=== PATIENT | male | born 1945 | race African-American/Black ===

== ENCOUNTER 2016-02-05 18:19 | Inpatient (IN) | payer OTHER ==
[2016-02-05 19:07] VITALS: BMI 18.8
--- NOTE | 2016-02-05 19:59 | HP ---
Admission [facility] Chief Complaint: i want to go to rehab Allergies/Adverse Reactions: Allergies Allergy/AdvReac Type Severity Reaction Status Date / Time No Known Allergies Allergy Verified 02/05/16 20:09 History of Present Illness: 70 years old male with long history of alcohol nicotine dependence, has bph, hyperthyroid chronic back pain 12/2015 lost beloved friend, tearful, is admitted to rehab Exam Limitations: No Limitations - Ebola screening Have you traveled outside of the country in the last 21 days: No Have you had contact with anyone from an Ebola affected area: No Have you been sick,other than usual withdrawal symptoms: No Do you have a fever: No - Review of Systems Constitutional: Chills, Loss of Appetite, Changes in sleep, Unintentional Wgt. Loss EENT: reports: Dental Problems Respiratory: reports: No Symptoms reported Cardiac: reports: No Symptoms Reported GI: reports: No Symptoms Reported : reports: See HPI Musculoskeletal: reports: Back Pain Integumentary: reports: Change in Color (left foot) Neuro: reports: No Symptoms reported Endocrine: reports: Unexplained Weight Loss Hematology: reports: No Symptoms Reported Psychiatric: reports: Judgement Intact, Orientated x3, Depressed (recent lost beloved one) Other Systems: Reviewed and Negative Patient History - Patient Medical History Hx Anemia: No Hx Asthma: No Hx Chronic Obstructive Pulmonary Disease (COPD): No Hx Cancer: No Hx Cardiac Disorders: No Hx Congestive Heart Failure: No Hx Hypertension: No Hx Hypercholesterolemia: No Hx Pacemaker: No HX Cerebrovascular Accident: No Hx Seizures: No Hx Dementia: No Hx Diabetes: No Hx Gastrointestinal Disorders: No Hx Liver Disease: No Hx Genitourinary Disorders: No Hx Sexually Transmitted Disorders: No Hx Renal Disease (ESRD): No Hx Thyroid Disease: No Hx Human Immunodeficiency Virus (HIV): No Hx Hepatitis C: No Hx Depression: Yes (recent lost significant other) Hx Suicide Attempt: No Hx Bipolar Disorder: No Hx Schizophrenia: No - Patient Surgical History Past Surgical History: No - PPD History Previous Implant?: Yes Documented Results: Negative w/o proof Implanted On Prior [facility] Admission?: No PPD to be Administered?: Yes - Smoking Cessation Smoking history: Current every day smoker Have you smoked in the past 12 months: Yes Aproximately how many cigarettes per day: 5 Cigars Per Day: 0 Hx Chewing Tobacco Use: No Initiated information on smoking cessation: Yes 'Breaking Loose' booklet given: 02/05/16 - Substance & Tx. History Hx Alcohol Use: Yes Hx Substance Use: No Substance Use Type: Alcohol Hx Substance Use Treatment: Yes - Substances Abused Alcohol Route: Oral Frequency: Daily Amount used: susanna valenzuela Age of first use: 19 Date of Last Use: 02/04/16 Family Disease History - Family Disease History Family Disease History: Diabetes: Mother Admission Physical Exam [facility] - Vital Signs Vital Signs: Vital Signs - 24 hr 02/05/16 19:03 Temperature 97.9 F Pulse Rate 99 H Respiratory 20 Rate Blood Pressure 139/91 - Physical General Appearance: Yes: No Apparent Distress, Appropriately Dressed, Thin HEENTM: Yes: Hearing grossly Normal, Normal ENT Inspection, Normocephalic, Normal Voice Respiratory: Yes: Chest Non-Tender, Lungs Clear, Normal Breath Sounds, No Respiratory Distress, No Accessory Muscle Use Neck: Yes: Supple, Trachea in good position Breast: Yes: Breasts Symetrical Cardiology: Yes: Regular Rhythm, S1, S2, Tachycardia (rule out hyperthyroid) Abdominal: Yes: Non Tender, Soft Genitourinary: Yes: Within Normal Limits Back: Yes: Normal Inspection Musculoskeletal: Yes: full range of Motion, Gait Steady, Back pain (lidocaine) Extremities: Yes: Normal Inspection, Normal Range of Motion, Non-Tender Neurological: Yes: Fully Oriented, Alert, Motor Strength 5/5, Normal Response, Depressed Affect (significant pasted away 12/2015) Integumentary: Yes: Dry, Warm Lymphatic: Yes: Within Normal Limits - Diagnostic (1) Alcohol dependence with uncomplicated withdrawal Current Visit: Yes Status: Acute (2) BPH (benign prostatic hyperplasia) Current Visit: Yes Status: Acute Qualifiers: Prostatic enlargement morphology: non-nodular Lower urinary tract symptom presence: symptoms absent Qualified Code(s): N40.0 - Enlarged prostate without lower urinary tract symptoms (3) Hyperthyroidism Current Visit: Yes Status: Ruled-out Comment: tsh pending (4) Acute depression Current Visit: Yes Status: Acute Comment: significant other past away (5) Weight loss Current Visit: Yes Status: Acute (6) Arthritis Current Visit: Yes Status: Acute Comment: lidocaine patch Cleared for Admission [facility] - Detox or Rehab [facility] Level of Care: Observation Bed Claeared for Rehab Admission: Yes [facility] Breath Alcohol Content Breath Alcohol Content: 0 Urine Drug Screen - Results Drug Screen Negative: Yes
[2016-02-05] MEDS ORDERED: MAG HYDROX/AL HYDROX/SIMETH 30 ML UNIT-DOSE CUP PO PRN (20:04)
[2016-02-05] MEDS ORDERED: MAGNESIUM CITRATE 300 ML BOTTLE PO PRN (20:04)
[2016-02-05] MEDS ORDERED: MENTHOL/PHENOL 1 EACH UD MM PRN (20:04)
[2016-02-05] MEDS ORDERED: guaiFENesin/D-METHORPHAN HB 10 ML UNIT-DOSE CUPS PO PRN (20:04)
[2016-02-05] MEDS ORDERED: LOPERAMIDE HCL 2 MG CAPSULE PO PRN (20:04)
[2016-02-05] MEDS ORDERED: MAGNESIUM HYDROX 2400MG/30ML ORAL SUSPENSION 30 ML CUP PO PRN (20:04)
[2016-02-05] MEDS ORDERED: P-EPHED 60MG/TRIPROLIDI 2.5MG TABLET PO PRN (20:04)
[2016-02-05] MEDS ORDERED: hydrOXYzine PAMOATE 50 MG CAPSULE (FP) PO PRN (20:09)
[2016-02-05] MEDS ORDERED: NICOTINE POLACRILEX 2 MG GUM BC PRN (20:09)
[2016-02-05] MEDS ORDERED: cloNIDine HCL 0.1 MG TABLET PO PRN (20:13)
[2016-02-05] MEDS ORDERED: BACITRACIN 0.9 GM PACKET TP ONE (20:15)
[2016-02-05] MEDS: MINERAL OIL/PETROLAT/WATER TOPICAL CREAM 113 GM JAR TP SCH (23:03)
[2016-02-05] MEDS: THIAMINE HCL 100 MG TABLET (FP) PO SCH (23:03)
[2016-02-06] MEDS: TAMSULOSIN HCL 0.4 MG CAP.ER.24H (FP) PO SCH (09:29)
[2016-02-06] MEDS: NICOTINE 14 MG/24 HOURS TOPICAL PATCH TD SCH (09:43)
[2016-02-06] MEDS: PRENATAL VITAMINS W/ FOLIC ACID TABLET (FP) PO SCH (09:43)
[2016-02-06] MEDS: LIDOCAINE 5% TOPICAL PATCH TP SCH (09:43)
[2016-02-06] MEDS: IBUPROFEN 400 MG TABLET (FP) PO PRN (09:44)
[2016-02-06 10:34] LABS: MCH 28.2 pg (25.7-33.7); MCHC 32.8 g/dl (32.0-35.9); MEAN PLT VOLUME 7.7 fl (7.5-11.1); PLATELET COUNT 286 K/MM3 (134-434); RDW 13.9 % (11.9-15.9)
[2016-02-06 11:06] LABS: ALBUMIN 3.4 g/dl (3.4-5.0); ALK PHOS 53 U/L (45-117); ANION GAP 8 (8-16); BILIRUBIN,TOTAL 0.3 mg/dL (0.2-1.0); CO2 27 mmol/L (21-32); CREATININE 1.1 mg/dL (0.7-1.3); GLUCOSE,RANDOM 77 mg/dL (74-106); TOT PROT 7.1 g/dl (6.4-8.2)
[2016-02-06 11:09] LABS: SGOT/AST 24 U/L (15-37); SGPT/ALT 25 U/L (12-78)
[2016-02-06 11:26] LABS: THYROID STIMULATING HORMONE 1.24 uIU/ml (0.358-3.74)
--- NOTE | 2016-02-06 19:05 | HP ---
Psychiatrist Admission - Data Date of interview: 02/06/16 Admission source: [facility] Identifying data: First admission to [address] for this 70 y/o [place]-born male seeking rehabilitation treatment after completion of detox ([facility]) for alcohol and cocaine (crack) dependence.Patient is ,a father of six,homeless,unemployed and supported on SSI/SSD benefits. Medical History: Significant for low back pain,hyperthyroidism and benign prostatic hyperplasia. Psychiatric History: Patient denies. Physical/Sexual Abuse/Trauma History: Patient denies history of sexual abuse.Stressors:recent of a friend,homelessness and lack of family support. Additional Comment: - Smoking Cessation. Smoking history: Current every day smoker. Have you smoked in the past 12 months: Yes. Aproximately how many cigarettes per day: 5. Cigars Per Day: 0. Hx Chewing Tobacco Use: No. Initiated information on smoking cessation: Yes. 'Breaking Loose' booklet given : 02/05/16. - Substance & Tx. History. Hx Alcohol Use: Yes. Hx Substance Use : No. Substance Use Type: Alcohol. Hx Substance Use Treatment: Yes. - Substances Abused. Alcohol. Route: Oral. Frequency: Daily. Amount used: pint volka. Age of first use: 19. Date of Last Use: 02/04/16. Confirmed by patient. Vital Signs: Vital Signs - 24 hr 02/05/16 02/05/16 02/06/16 19:03 20:55 03:25 Temperature 97.9 F 98.1 F Pulse Rate 99 H 89 Respiratory 20 18 18 Rate Blood Pressure 139/91 134/83 02/06/16 06:56 Temperature 97.2 F L Pulse Rate 79 Respiratory 18 Rate Blood Pressure 134/85 Allergies/Adverse Reactions: Allergies Allergy/AdvReac Type Severity Reaction Status Date / Time No Known Allergies Allergy Verified 02/05/16 23:37 - Substance Abuse/Tx History Hx Alcohol Use: Yes Hx Substance Use: Yes (crack-cocaine,nicotine and alcohol) Substance Use Type: Alcohol, Cocaine Hx Substance Use Treatment: Yes - Admission Criteria Previous failed treatment: Yes Poor recovery environment: Yes Comorbidities: Yes Mental Status Exam - Mental Status Exam Alert and Oriented to: Time, Place, Person Cognitive Function: Good Patient Appearance: Well Groomed Mood: Sad (saddened by the of his female friend and roommate), Hopeful Affect: Appropriate, Normal Range Patient Behavior: Fatigued, Appropriate, Cooperative Speech Pattern: Clear, Appropriate Voice Loudness: Normal Thought Process: Intact, Goal Oriented Thought Disorder: Not Present Hallucinations: Denies Suicidal Ideation: Denies Homicidal Ideation: Denies Insight/Judgement: Fair Sleep: Well Appetite: Good Muscle strength/Tone: Normal Gait/Station: Normal Psychiatric Findings - Problem List ([place] 1, 2,3) (1) Alcohol dependence Current Visit: Yes Status: Acute (2) Cocaine dependence Current Visit: Yes Status: Acute (3) Bereavement Current Visit: Yes Status: Acute (4) BPH (benign prostatic hyperplasia) Current Visit: Yes Status: Chronic Qualifiers: Prostatic enlargement morphology: non-nodular Lower urinary tract symptom presence: symptoms absent Qualified Code(s): N40.0 - Enlarged prostate without lower urinary tract symptoms (5) Arthritis Current Visit: Yes Status: Chronic Comment: lidocaine patch (6) Hyperthyroidism Current Visit: Yes Status: Ruled-out Comment: tsh pending (7) Weight loss Current Visit: Yes Status: Chronic - Initial Treatment Plan Initial Treatment Plan: Psychoeducation.Rehabilitation.No indication for antidepressant medications (normal reaction to a loss).Empathy and support.Observation.
[2016-02-06] MEDS: THIAMINE HCL 100 MG TABLET (FP) PO SCH (21:42)
[2016-02-06] MEDS: diphenhydrAMINE HCL 50 MG CAPSULE PO PRN (21:43)
[2016-02-06] MEDS: MINERAL OIL/PETROLAT/WATER TOPICAL CREAM 113 GM JAR TP SCH (21:44)
[2016-02-07] MEDS: IBUPROFEN 400 MG TABLET (FP) PO PRN (06:42)
[2016-02-07] MEDS: TAMSULOSIN HCL 0.4 MG CAP.ER.24H (FP) PO SCH (09:20)
[2016-02-07] MEDS: NICOTINE 14 MG/24 HOURS TOPICAL PATCH TD SCH (09:20)
[2016-02-07] MEDS: PRENATAL VITAMINS W/ FOLIC ACID TABLET (FP) PO SCH (09:20)
[2016-02-07] MEDS: LIDOCAINE 5% TOPICAL PATCH TP SCH (09:21)
[2016-02-07] MEDS: THIAMINE HCL 100 MG TABLET (FP) PO SCH (21:46)
[2016-02-07] MEDS: MINERAL OIL/PETROLAT/WATER TOPICAL CREAM 113 GM JAR TP SCH (21:46)
[2016-02-07] MEDS: diphenhydrAMINE HCL 50 MG CAPSULE PO PRN (21:46)
[2016-02-08] MEDS: LIDOCAINE 5% TOPICAL PATCH TP SCH (09:29)
[2016-02-08] MEDS: PRENATAL VITAMINS W/ FOLIC ACID TABLET (FP) PO SCH (09:29)
[2016-02-08] MEDS: TAMSULOSIN HCL 0.4 MG CAP.ER.24H (FP) PO SCH (09:29)
[2016-02-08] MEDS: NICOTINE 14 MG/24 HOURS TOPICAL PATCH TD SCH (09:30)
[2016-02-08] MEDS: IBUPROFEN 400 MG TABLET (FP) PO PRN (09:31)
[2016-02-08 15:37] LABS: URINE APPEARANCE CLEAR; URINE BILIRUBIN NEGATIVE (NEGATIVE); URINE BLOOD NEGATIVE (NEGATIVE); URINE COLOR YELLOW; URINE GLUCOSE (UA) NEGATIVE (NEGATIVE); URINE KETONE NEGATIVE (NEGATIVE); URINE LEUK ESTERASE NEGATIVE (NEGATIVE); URINE NITRITE NEGATIVE (NEGATIVE); URINE PROTEIN NEGATIVE (NEGATIVE); URINE UROBILINOGEN NEGATIVE E.U./dl (0.2-1.0)
[2016-02-08] MEDS: MINERAL OIL/PETROLAT/WATER TOPICAL CREAM 113 GM JAR TP SCH (21:17)
[2016-02-08] MEDS: THIAMINE HCL 100 MG TABLET (FP) PO SCH (21:18)
[2016-02-08] MEDS: diphenhydrAMINE HCL 50 MG CAPSULE PO PRN (21:18)
[2016-02-09] MEDS: PRENATAL VITAMINS W/ FOLIC ACID TABLET (FP) PO SCH (09:29)
[2016-02-09] MEDS: TAMSULOSIN HCL 0.4 MG CAP.ER.24H (FP) PO SCH (09:30)
[2016-02-09] MEDS: NICOTINE 14 MG/24 HOURS TOPICAL PATCH TD SCH (09:31)
[2016-02-09] MEDS: LIDOCAINE 5% TOPICAL PATCH TP SCH (09:31)
[2016-02-09] MEDS: diphenhydrAMINE HCL 50 MG CAPSULE PO PRN (21:50)
[2016-02-09] MEDS: MINERAL OIL/PETROLAT/WATER TOPICAL CREAM 113 GM JAR TP SCH (21:50)
[2016-02-09] MEDS: THIAMINE HCL 100 MG TABLET (FP) PO SCH (21:50)
[2016-02-09] MEDS: IBUPROFEN 400 MG TABLET (FP) PO PRN (21:52)
[2016-02-10] MEDS: TAMSULOSIN HCL 0.4 MG CAP.ER.24H (FP) PO SCH (08:35)
[2016-02-10] MEDS: NICOTINE 14 MG/24 HOURS TOPICAL PATCH TD SCH (09:35)
[2016-02-10] MEDS: PRENATAL VITAMINS W/ FOLIC ACID TABLET (FP) PO SCH (09:41)
[2016-02-10] MEDS: IBUPROFEN 400 MG TABLET (FP) PO PRN (09:42)
[2016-02-10] MEDS: LIDOCAINE 5% TOPICAL PATCH TP SCH (09:43)
[2016-02-10] MEDS: THIAMINE HCL 100 MG TABLET (FP) PO SCH (21:23)
[2016-02-10] MEDS: diphenhydrAMINE HCL 50 MG CAPSULE PO PRN (21:23)
[2016-02-10] MEDS: MINERAL OIL/PETROLAT/WATER TOPICAL CREAM 113 GM JAR TP SCH (21:23)
[2016-02-11] MEDS: TAMSULOSIN HCL 0.4 MG CAP.ER.24H (FP) PO SCH (09:28)
[2016-02-11] MEDS: NICOTINE 14 MG/24 HOURS TOPICAL PATCH TD SCH (10:18)
[2016-02-11] MEDS: PRENATAL VITAMINS W/ FOLIC ACID TABLET (FP) PO SCH (10:18)
[2016-02-11] MEDS: LIDOCAINE 5% TOPICAL PATCH TP SCH (10:18)
[2016-02-11] MEDS: IBUPROFEN 400 MG TABLET (FP) PO PRN (10:19)
[2016-02-11] MEDS: THIAMINE HCL 100 MG TABLET (FP) PO SCH (21:39)
[2016-02-11] MEDS: MINERAL OIL/PETROLAT/WATER TOPICAL CREAM 113 GM JAR TP SCH (21:39)
[2016-02-11] MEDS: diphenhydrAMINE HCL 50 MG CAPSULE PO PRN (21:40)
[2016-02-12] MEDS: TAMSULOSIN HCL 0.4 MG CAP.ER.24H (FP) PO SCH (09:32)
[2016-02-12] MEDS: PRENATAL VITAMINS W/ FOLIC ACID TABLET (FP) PO SCH (09:32)
[2016-02-12] MEDS: LIDOCAINE 5% TOPICAL PATCH TP SCH (09:32)
[2016-02-12] MEDS: NICOTINE 14 MG/24 HOURS TOPICAL PATCH TD SCH (09:33)
[2016-02-12] MEDS: IBUPROFEN 400 MG TABLET (FP) PO PRN (09:34)
[2016-02-12] MEDS: THIAMINE HCL 100 MG TABLET (FP) PO SCH (22:16)
[2016-02-12] MEDS: MINERAL OIL/PETROLAT/WATER TOPICAL CREAM 113 GM JAR TP SCH (22:16)
[2016-02-12] MEDS: diphenhydrAMINE HCL 50 MG CAPSULE PO PRN (22:16)
[2016-02-13] MEDS: diphenhydrAMINE HCL 50 MG CAPSULE PO PRN ×2 (00:02→22:09)
[2016-02-13] MEDS: TAMSULOSIN HCL 0.4 MG CAP.ER.24H (FP) PO SCH (08:45)
[2016-02-13] MEDS: PRENATAL VITAMINS W/ FOLIC ACID TABLET (FP) PO SCH (09:34)
[2016-02-13] MEDS: NICOTINE 14 MG/24 HOURS TOPICAL PATCH TD SCH (09:36)
[2016-02-13] MEDS: IBUPROFEN 400 MG TABLET (FP) PO PRN (09:36)
[2016-02-13] MEDS: LIDOCAINE 5% TOPICAL PATCH TP SCH (09:36)
[2016-02-13] MEDS: THIAMINE HCL 100 MG TABLET (FP) PO SCH (22:09)
[2016-02-13] MEDS: MINERAL OIL/PETROLAT/WATER TOPICAL CREAM 113 GM JAR TP SCH (22:10)
[2016-02-14] MEDS: TAMSULOSIN HCL 0.4 MG CAP.ER.24H (FP) PO SCH (08:40)
[2016-02-14] MEDS: IBUPROFEN 400 MG TABLET (FP) PO PRN (09:55)
[2016-02-14] MEDS: PRENATAL VITAMINS W/ FOLIC ACID TABLET (FP) PO SCH (09:55)
[2016-02-14] MEDS: LIDOCAINE 5% TOPICAL PATCH TP SCH (09:56)
[2016-02-14] MEDS: NICOTINE 14 MG/24 HOURS TOPICAL PATCH TD SCH (09:57)
[2016-02-14] MEDS: diphenhydrAMINE HCL 50 MG CAPSULE PO PRN ×2 (21:46→23:28)
[2016-02-14] MEDS: THIAMINE HCL 100 MG TABLET (FP) PO SCH (21:46)
[2016-02-14] MEDS: MINERAL OIL/PETROLAT/WATER TOPICAL CREAM 113 GM JAR TP SCH (21:47)
[2016-02-15] MEDS: NICOTINE 14 MG/24 HOURS TOPICAL PATCH TD SCH (09:32)
[2016-02-15] MEDS: TAMSULOSIN HCL 0.4 MG CAP.ER.24H (FP) PO SCH (09:32)
[2016-02-15] MEDS: LIDOCAINE 5% TOPICAL PATCH TP SCH (09:32)
[2016-02-15] MEDS: PRENATAL VITAMINS W/ FOLIC ACID TABLET (FP) PO SCH (09:32)
[2016-02-15] MEDS: IBUPROFEN 400 MG TABLET (FP) PO PRN (09:33)
[2016-02-15] MEDS: diphenhydrAMINE HCL 50 MG CAPSULE PO PRN ×2 (21:23→23:44)
[2016-02-15] MEDS: THIAMINE HCL 100 MG TABLET (FP) PO SCH (21:23)
[2016-02-15] MEDS: MINERAL OIL/PETROLAT/WATER TOPICAL CREAM 113 GM JAR TP SCH (21:24)
[2016-02-16] MEDS: TAMSULOSIN HCL 0.4 MG CAP.ER.24H (FP) PO SCH (09:33)
[2016-02-16] MEDS: NICOTINE 14 MG/24 HOURS TOPICAL PATCH TD SCH (09:33)
[2016-02-16] MEDS: PRENATAL VITAMINS W/ FOLIC ACID TABLET (FP) PO SCH (09:33)
[2016-02-16] MEDS: LIDOCAINE 5% TOPICAL PATCH TP SCH (09:33)
[2016-02-16] MEDS: IBUPROFEN 400 MG TABLET (FP) PO PRN (09:35)
[2016-02-16] MEDS: THIAMINE HCL 100 MG TABLET (FP) PO SCH (21:50)
[2016-02-16] MEDS: diphenhydrAMINE HCL 50 MG CAPSULE PO PRN (21:50)
[2016-02-16] MEDS: MINERAL OIL/PETROLAT/WATER TOPICAL CREAM 113 GM JAR TP SCH (21:51)
[2016-02-17] MEDS: diphenhydrAMINE HCL 50 MG CAPSULE PO PRN ×2 (01:50→21:55)
[2016-02-17] MEDS: TAMSULOSIN HCL 0.4 MG CAP.ER.24H (FP) PO SCH (08:02)
[2016-02-17] MEDS: PRENATAL VITAMINS W/ FOLIC ACID TABLET (FP) PO SCH (09:43)
[2016-02-17] MEDS: NICOTINE 14 MG/24 HOURS TOPICAL PATCH TD SCH (09:44)
[2016-02-17] MEDS: IBUPROFEN 400 MG TABLET (FP) PO PRN (09:45)
[2016-02-17] MEDS: LIDOCAINE 5% TOPICAL PATCH TP SCH (09:46)
[2016-02-17] MEDS: MINERAL OIL/PETROLAT/WATER TOPICAL CREAM 113 GM JAR TP SCH (21:54)
[2016-02-17] MEDS: THIAMINE HCL 100 MG TABLET (FP) PO SCH (21:54)
[2016-02-18] MEDS: IBUPROFEN 400 MG TABLET (FP) PO PRN (06:59)
[2016-02-18] MEDS: TAMSULOSIN HCL 0.4 MG CAP.ER.24H (FP) PO SCH (07:34)
[2016-02-18] MEDS: PRENATAL VITAMINS W/ FOLIC ACID TABLET (FP) PO SCH (09:44)
[2016-02-18] MEDS: NICOTINE 14 MG/24 HOURS TOPICAL PATCH TD SCH (09:44)
[2016-02-18] MEDS: LIDOCAINE 5% TOPICAL PATCH TP SCH (09:44)
[2016-02-18] MEDS: diphenhydrAMINE HCL 50 MG CAPSULE PO PRN (21:10)
[2016-02-18] MEDS: THIAMINE HCL 100 MG TABLET (FP) PO SCH (21:10)
[2016-02-18] MEDS: MINERAL OIL/PETROLAT/WATER TOPICAL CREAM 113 GM JAR TP SCH (21:11)
[2016-02-19] MEDS: PRENATAL VITAMINS W/ FOLIC ACID TABLET (FP) PO SCH (09:28)
[2016-02-19] MEDS: LIDOCAINE 5% TOPICAL PATCH TP SCH (09:28)
[2016-02-19] MEDS: NICOTINE 14 MG/24 HOURS TOPICAL PATCH TD SCH (09:28)
[2016-02-19] MEDS: TAMSULOSIN HCL 0.4 MG CAP.ER.24H (FP) PO SCH (09:28)
[2016-02-19] MEDS: ACETAMINOPHEN 325 MG TABLET (FP) PO PRN (09:29)
[2016-02-19] MEDS: MINERAL OIL/PETROLAT/WATER TOPICAL CREAM 113 GM JAR TP SCH (21:31)
[2016-02-19] MEDS: THIAMINE HCL 100 MG TABLET (FP) PO SCH (21:31)
[2016-02-19] MEDS: diphenhydrAMINE HCL 50 MG CAPSULE PO PRN (21:33)
[2016-02-20] MEDS: PRENATAL VITAMINS W/ FOLIC ACID TABLET (FP) PO SCH (09:06)
[2016-02-20] MEDS: TAMSULOSIN HCL 0.4 MG CAP.ER.24H (FP) PO SCH (09:06)
[2016-02-20] MEDS: NICOTINE 14 MG/24 HOURS TOPICAL PATCH TD SCH (09:07)
[2016-02-20] MEDS: IBUPROFEN 400 MG TABLET (FP) PO PRN ×2 (09:07→21:51)
[2016-02-20] MEDS: LIDOCAINE 5% TOPICAL PATCH TP SCH (09:07)
[2016-02-20] MEDS: THIAMINE HCL 100 MG TABLET (FP) PO SCH (21:49)
[2016-02-20] MEDS: diphenhydrAMINE HCL 50 MG CAPSULE PO PRN (21:50)
[2016-02-20] MEDS: MINERAL OIL/PETROLAT/WATER TOPICAL CREAM 113 GM JAR TP SCH (21:52)
[2016-02-21] MEDS: CYCLOBENZAPRINE HCL 10 MG TABLET (FP) PO PRN ×2 (06:36→21:28)
[2016-02-21] MEDS: IBUPROFEN 400 MG TABLET (FP) PO PRN (09:03)
[2016-02-21] MEDS: TAMSULOSIN HCL 0.4 MG CAP.ER.24H (FP) PO SCH (09:03)
[2016-02-21] MEDS: PRENATAL VITAMINS W/ FOLIC ACID TABLET (FP) PO SCH (09:03)
[2016-02-21] MEDS: LIDOCAINE 5% TOPICAL PATCH TP SCH (09:04)
[2016-02-21] MEDS: NICOTINE 14 MG/24 HOURS TOPICAL PATCH TD SCH (09:04)
[2016-02-21] MEDS: THIAMINE HCL 100 MG TABLET (FP) PO SCH (21:27)
[2016-02-21] MEDS: ACETAMINOPHEN 325 MG TABLET (FP) PO PRN (21:28)
[2016-02-21] MEDS: diphenhydrAMINE HCL 50 MG CAPSULE PO PRN (21:28)
[2016-02-21] MEDS: MINERAL OIL/PETROLAT/WATER TOPICAL CREAM 113 GM JAR TP SCH (21:29)
[2016-02-22] MEDS: IBUPROFEN 400 MG TABLET (FP) PO PRN (08:23)
[2016-02-22] MEDS: CYCLOBENZAPRINE HCL 10 MG TABLET (FP) PO PRN ×2 (08:23→22:01)
[2016-02-22] MEDS: PRENATAL VITAMINS W/ FOLIC ACID TABLET (FP) PO SCH (09:25)
[2016-02-22] MEDS: TAMSULOSIN HCL 0.4 MG CAP.ER.24H (FP) PO SCH (09:25)
[2016-02-22] MEDS: LIDOCAINE 5% TOPICAL PATCH TP SCH (09:25)
[2016-02-22] MEDS: NICOTINE 14 MG/24 HOURS TOPICAL PATCH TD SCH (09:26)
[2016-02-22] MEDS: MINERAL OIL/PETROLAT/WATER TOPICAL CREAM 113 GM JAR TP SCH (21:59)
[2016-02-22] MEDS: THIAMINE HCL 100 MG TABLET (FP) PO SCH (22:00)
[2016-02-22] MEDS: diphenhydrAMINE HCL 50 MG CAPSULE PO PRN (22:01)
[2016-02-23] MEDS: TAMSULOSIN HCL 0.4 MG CAP.ER.24H (FP) PO SCH (08:40)
[2016-02-23] MEDS: PRENATAL VITAMINS W/ FOLIC ACID TABLET (FP) PO SCH (09:50)
[2016-02-23] MEDS: NICOTINE 14 MG/24 HOURS TOPICAL PATCH TD SCH (09:50)
[2016-02-23] MEDS: LIDOCAINE 5% TOPICAL PATCH TP SCH (09:51)
[2016-02-23] MEDS: IBUPROFEN 400 MG TABLET (FP) PO PRN (09:52)
[2016-02-23] MEDS: CYCLOBENZAPRINE HCL 10 MG TABLET (FP) PO PRN ×2 (09:52→21:41)
[2016-02-23] MEDS: MINERAL OIL/PETROLAT/WATER TOPICAL CREAM 113 GM JAR TP SCH (21:40)
[2016-02-23] MEDS: THIAMINE HCL 100 MG TABLET (FP) PO SCH (21:40)
[2016-02-23] MEDS: ACETAMINOPHEN 325 MG TABLET (FP) PO PRN (21:41)
[2016-02-23] MEDS: diphenhydrAMINE HCL 50 MG CAPSULE PO PRN (21:41)
[2016-02-24] MEDS: TAMSULOSIN HCL 0.4 MG CAP.ER.24H (FP) PO SCH (09:30)
[2016-02-24] MEDS: LIDOCAINE 5% TOPICAL PATCH TP SCH (09:36)
[2016-02-24] MEDS: PRENATAL VITAMINS W/ FOLIC ACID TABLET (FP) PO SCH (09:36)
[2016-02-24] MEDS: NICOTINE 14 MG/24 HOURS TOPICAL PATCH TD SCH (09:37)
[2016-02-24] MEDS: CYCLOBENZAPRINE HCL 10 MG TABLET (FP) PO PRN ×2 (09:38→21:46)
[2016-02-24] MEDS: IBUPROFEN 400 MG TABLET (FP) PO PRN (09:38)
[2016-02-24] MEDS: THIAMINE HCL 100 MG TABLET (FP) PO SCH (21:44)
[2016-02-24] MEDS: MINERAL OIL/PETROLAT/WATER TOPICAL CREAM 113 GM JAR TP SCH (21:45)
[2016-02-24] MEDS: diphenhydrAMINE HCL 50 MG CAPSULE PO PRN (21:46)
[2016-02-25 07:06] VITALS: BP 135/74; PULSE 91; TEMP 97.8
[2016-02-25] MEDS: TAMSULOSIN HCL 0.4 MG CAP.ER.24H (FP) PO SCH (08:52)
[2016-02-25] MEDS: CYCLOBENZAPRINE HCL 10 MG TABLET (FP) PO PRN (09:15)
[2016-02-25] MEDS: ACETAMINOPHEN 325 MG TABLET (FP) PO PRN (09:15)
[2016-02-25] MEDS: NICOTINE 14 MG/24 HOURS TOPICAL PATCH TD SCH (10:03)
[2016-02-25] MEDS: PRENATAL VITAMINS W/ FOLIC ACID TABLET (FP) PO SCH (10:03)
[2016-02-25] MEDS: LIDOCAINE 5% TOPICAL PATCH TP SCH (10:03)
--- NOTE | 2016-02-25 10:17 | PN ---
Psychiatric Progress Note Vital Signs: Vital Signs Period Temp Pulse Resp BP Sys/Ulloa Pulse Ox Last 24 Hr 97.8 F 91 18-20 135/74 Date of Session: 02/25/16 Chief Complaint:: discharge visit HPI: Patient has addressed alcohol, cocaine depenence comorbid Bereavement. ROS: BPH, Lower back pain, and healed abscess. between buttocks medically managed. Current Medications: Active Medications Generic Name Dose Route Start Last Admin Trade Name Freq PRN Reason Stop Dose Admin Acetaminophen 650 mg 02/05/16 20:04 02/25/16 09:15 Tylenol - PO 650 mg Q4H PRN Administration PAIN Al Hydroxide/Mg Hydroxide 30 ml 02/05/16 20:04 Mylanta Oral Suspension - PO Q6H PRN DYSPEPSIA Clonidine 0.1 mg 02/05/16 20:13 Catapres - PO Q6H PRN WITHDRAWAL(CONT SUBST) Cyclobenzaprine HCl 10 mg 02/05/16 20:15 02/25/16 09:15 Flexeril - PO 10 mg TID PRN Administration MUSCLE SPASMS Diphenhydramine HCl 50 mg 02/05/16 20:04 02/24/16 21:46 Benadryl - PO 50 mg HSMR1 PRN Administration INSOMNIA Eucalyptus/Menthol/Phenol/Sorbitol 1 each 02/05/16 20:04 Cepastat Lozenge - MM Q4H PRN SORE THROAT Guaifenesin 10 ml 02/05/16 20:04 Robitussin Dm - PO Q6H PRN COUGH Hydroxyzine Pamoate 50 mg 02/05/16 20:09 02/05/16 23:06 Vistaril - PO 50 mg Q4H PRN Administration AGITATION Ibuprofen 400 mg 02/05/16 20:04 02/24/16 09:38 Motrin - PO 400 mg Q6H PRN Administration SEVERE PAIN Lidocaine 1 patch 02/06/16 10:00 02/25/16 10:03 Lidoderm Patch - TP Not Given DAILY CASEY Loperamide HCl 4 mg 02/05/16 20:04 Imodium - PO Q6H PRN DIARRHEA Magnesium Citrate 300 ml 02/05/16 20:04 Citroma - PO Q48H PRN CONSTIPATION Magnesium Hydroxide 30 ml 02/05/16 20:04 Milk Of Magnesia - PO DAILY PRN CONSTIPATION Multi-Ingredient Lotion 1 applic 02/05/16 22:00 02/24/16 21:45 Eucerin (Small Jar) - TP 1 applic HS CASEY Administration Nicotine 14 mg 02/06/16 10:00 02/25/16 10:03 Nicoderm Patch - TD Not Given DAILY CASEY Nicotine Polacrilex 2 mg 02/05/16 20:09 Nicorette Gum - BC Q2H PRN NICOTINE REPLACEMENT RX Multivit/Folic Acid/Iron 1 tab 02/06/16 10:00 02/25/16 10:03 Vitamins ([facility]) - PO 1 tab DAILY CASEY Administration Pseudoephedrine/Triprolidine 1 combo 02/05/16 20:04 Actifed - PO TID PRN NASAL CONGESTION Tamsulosin HCl 0.4 mg 02/06/16 08:30 02/25/16 08:52 Flomax - PO 0.4 mg DAILY@0830 CASEY Administration Thiamine HCl 100 mg 02/05/16 22:00 02/24/16 21:44 Vitamin B1 - PO 100 mg HS CASEY Administration Current Side Effect: No Lab tests ordered: No Lab tests reviewed: Yes Provider note:: Patient has completed today his treatment has met his treatment goals and will continue to address his issues at [place]. Patient focused on importance of changing attitudes for utilization of supports to maintain recovery.Therapy provided focusing on relapse prevention.Patient identifies behaviors which contribute to relapse and skills he can utilize to prevent relapses. Patient is stable for discharge today. Total face to face time:: 35 Mental Status Exam - Mental Status Exam Alert and Oriented to: Time, Place, Person Cognitive Function: Grossly Intact Patient Appearance: Well Groomed Mood: Hopeful Affect: Appropriate, Mood Congruent Patient Behavior: Appropriate, Cooperative Speech Pattern: Clear, Appropriate Voice Loudness: Normal Thought Process: Intact, Goal Oriented Thought Disorder: Not Present Hallucinations: Denies Suicidal Ideation: Denies Homicidal Ideation: Denies Insight/Judgement: Fair Sleep: Fair Appetite: Fair Muscle strength/Tone: Normal Gait/Station: Normal
== END 2016-02-25 10:45 | disposition home or self-care (01) | DRG 895 ==
LOC: YASAS 18:19 → Y5N 19:42
PROVIDERS: ADMIT Psychiatry & Neurology Psychiatry; ATTEND Psychiatry & Neurology Psychiatry
PROC: HZ42ZZZ Group Counseling for Substance Abuse Treatment, Cognitive-Behavioral (ICD-10-PCS; principal; 2016-02-05)
DX: F10.20 Alcohol dependence, uncomplicated (principal); F12.20 Cannabis dependence, uncomplicated; F17.210 Nicotine dependence, cigarettes, uncomplicated; Z63.4 Disappearance and death of family member; R00.0 Tachycardia, unspecified; N40.0 Benign prostatic hyperplasia without lower urinary tract symptoms; M54.5 Low back pain; M12.9 Arthropathy, unspecified; E05.90 Thyrotoxicosis, unspecified without thyrotoxic crisis or storm; Z87.898 Personal history of other specified conditions
CPT/HCPCS: 36415; 80053; 81003; 84443; 85027; 86593; 93005; 93010

== ENCOUNTER 2016-05-10 14:55 | Inpatient (IN) | payer OTHER ==
[2016-05-10 15:50] VITALS: BMI 19.5
--- NOTE | 2016-05-10 17:24 | HP ---
CIWA Score - CIWA Score Nausea/Vomitin-Mild Nausea/No Vomiting Muscle Tremors: 4-Moderate,w/Arms Extend Anxiety: 4-Mod. Anxious/Guarded Agitation: 4-Moderately Restless Paroxysmal Sweats: 1-Minimal Palms Moist Orientation: 3-Disoriented Date>2 days Tacttile Disturbances: 0-None Auditory Disturbances: 0-None Visual Disturbances: 0-None Headache: 0-None Present CIWA-Ar Total Score: 17 Admission ROS [facility] - HPI Chief Complaint: WITHDRAWAL SX 05/09/16 TREATED AT [facility] FOR ALCOHOL INTOXICATION DISCHARGE 05/10/16 FOR ALCOHOL DETOX PATIENT WAS DRINKING 40OZ BEER 10-15 CANS EVERY OTHER DAY TO EVERY DAY, EXPRESSED SAD AND DEPRESSED ABOUT OF HIS FRIEND Allergies/Adverse Reactions: Allergies Allergy/AdvReac Type Severity Reaction Status Date / Time No Known Allergies Allergy Verified 05/10/16 18:33 History of Present Illness: 70 YEARS OLD MALE WITH LONG HISTORY OF ALCOHOL NICOTINE DEPENDENCE, HAS BPH AND GERD AND DEPRESSION - BEST FRIEND , TEARFUL, SAD, DENIES SUICIDAL IS ADMITTED TO DETOX Exam Limitations: No Limitations - Ebola screening Have you traveled outside of the country in the last 21 days: No Have you had contact with anyone from an Ebola affected area: No Have you been sick,other than usual withdrawal symptoms: No Do you have a fever: No - Review of Systems Constitutional: Chills, Loss of Appetite, Changes in sleep, Unintentional Wgt. Loss, Unexplained wgt Loss EENT: reports: No Symptoms Reported Respiratory: reports: No Symptoms reported Cardiac: reports: No Symptoms Reported GI: reports: Nausea, Poor Appetite, Poor Fluid Intake, Indigestion, Abdominal cramping : reports: Dysuria Musculoskeletal: reports: No Symptoms Reported Integumentary: reports: Dryness Neuro: reports: Tremors Endocrine: reports: No Symptoms Reported Hematology: reports: No Symptoms Reported Psychiatric: reports: Judgement Intact, Depressed Other Systems: Reviewed and Negative Patient History - Patient Medical History Hx Anemia: No Hx Asthma: No Hx Chronic Obstructive Pulmonary Disease (COPD): No Hx Cancer: No Hx Cardiac Disorders: No Hx Congestive Heart Failure: No Hx Hypertension: No Hx Hypercholesterolemia: No Hx Pacemaker: No HX Cerebrovascular Accident: No Hx Seizures: No Hx Dementia: No Hx Diabetes: No Hx Gastrointestinal Disorders: No Hx Liver Disease: No Hx Genitourinary Disorders: No Hx Sexually Transmitted Disorders: No Hx Renal Disease (ESRD): No Hx Thyroid Disease: No Hx Human Immunodeficiency Virus (HIV): No Hx Hepatitis C: No Hx Depression: Yes Hx Suicide Attempt: No Hx Bipolar Disorder: No Hx Schizophrenia: No - Patient Surgical History Past Surgical History: No Hx Neurologic Surgery: No Hx Cataract Extraction: No Hx Cardiac Surgery: No Hx Lung Surgery: No Hx Breast Surgery: No Hx Breast Biopsy: No Hx Abdominal Surgery: No Hx Appendectomy: No Hx Cholecystectomy: No Hx Genitourinary Surgery: No Hx Orthopedic Surgery: No - PPD History Previous Implant?: Yes Documented Results: Negative w/proof Implanted On Prior R Admission?: Yes Date: 02/07/16 PPD to be Administered?: No - Smoking Cessation Smoking history: Current every day smoker Have you smoked in the past 12 months: Yes Aproximately how many cigarettes per day: 5 Cigars Per Day: 0 Hx Chewing Tobacco Use: No Initiated information on smoking cessation: Yes 'Breaking Loose' booklet given: 05/10/16 - Substance & Tx. History Hx Alcohol Use: Yes Substance Use Type: Alcohol, Cocaine Hx Substance Use Treatment: Yes - Substances Abused Alcohol Route: Oral Frequency: 3-6 times per week Amount used: [id number] Age of first use: 19 Date of Last Use: 05/10/16 Family Disease History - Family Disease History Family Disease History: Diabetes: Mother, Brother Admission Physical Exam [facility] - Vital Signs Vital Signs: Vital Signs - 24 hr 05/10/16 15:44 Temperature 96.9 F L Pulse Rate 85 Respiratory 18 Rate Blood Pressure 114/75 - Physical General Appearance: Yes: Appropriately Dressed, Mild Distress, Alcohol on Breath , Thin, Tremorous, Irritable, Sweating, Anxious HEENTM: Yes: Hearing grossly Normal, Normal ENT Inspection, Normocephalic, Normal Voice Respiratory: Yes: Normal Breath Sounds Neck: Yes: Supple, Trachea in good position Breast: Yes: Breasts Symetrical Cardiology: Yes: Regular Rhythm, Regular Rate, S1, S2 Abdominal: Yes: Non Tender, Soft Genitourinary: Yes: Within Normal Limits Back: Yes: Normal Inspection Musculoskeletal: Yes: full range of Motion, Gait Steady Extremities: Yes: Normal Range of Motion, Non-Tender, Tremors Neurological: Yes: Alert, Motor Strength 5/5, Normal Response, Depressed Affect Integumentary: Yes: Dry, Warm Lymphatic: Yes: Within Normal Limits - Diagnostic (1) Alcohol dependence with uncomplicated withdrawal Current Visit: Yes Status: Acute (2) BPH (benign prostatic hyperplasia) Current Visit: Yes Status: Acute Qualifiers: Prostatic enlargement morphology: non-nodular Lower urinary tract symptom presence: symptoms absent Qualified Code(s): N40.0 - Benign prostatic hyperplasia without lower urinary tract symptoms (3) Weight loss Current Visit: Yes Status: Acute (4) Cocaine dependence, uncomplicated Current Visit: Yes Status: Chronic (5) GERD (gastroesophageal reflux disease) Current Visit: Yes Status: Acute Qualifiers: Esophagitis presence: without esophagitis Qualified Code(s): K21.9 - Gastro-esophageal reflux disease without esophagitis Cleared for Admission S - Detox or Rehab [facility] Level of Care: Medically Managed Detox Regimen/Protocol: Librium [facility] Breath Alcohol Content Breath Alcohol Content: 0.008 Urine Drug Screen - Results Drug Screen Negative: No Urine Drug Screen Results: REANNA-Cocaine
[2016-05-10] MEDS ORDERED: NICOTINE POLACRILEX 2 MG GUM BC PRN (17:47)
[2016-05-10] MEDS ORDERED: MAGNESIUM HYDROX 2400MG/30ML ORAL SUSPENSION 30 ML CUP PO PRN (17:47)
[2016-05-10] MEDS ORDERED: MAG HYDROX/AL HYDROX/SIMETH 30 ML UNIT-DOSE CUP PO PRN (17:47)
[2016-05-10] MEDS ORDERED: LOPERAMIDE HCL 2 MG CAPSULE PO PRN (17:47)
[2016-05-10] MEDS ORDERED: P-EPHED 60MG/TRIPROLIDI 2.5MG TABLET PO PRN (17:47)
[2016-05-10] MEDS ORDERED: hydrOXYzine PAMOATE 50 MG CAPSULE (FP) PO PRN (17:47)
[2016-05-10] MEDS ORDERED: MENTHOL/PHENOL 1 EACH UD MM PRN (17:47)
[2016-05-10] MEDS ORDERED: MAGNESIUM CITRATE 300 ML BOTTLE PO PRN (17:47)
[2016-05-10] MEDS: chlordiazePOXIDE HCL 25 MG CAPSULE PO PRN (19:57)
[2016-05-10] MEDS: TAMSULOSIN HCL 0.4 MG CAP.ER.24H (FP) PO SCH (22:16)
[2016-05-10] MEDS: THIAMINE HCL 100 MG TABLET (FP) PO SCH (22:16)
[2016-05-10] MEDS: chlordiazePOXIDE HCL 25 MG CAPSULE PO SCH (22:16)
[2016-05-10] MEDS: RANITIDINE HCL 150 MG TABLET (FP) PO SCH (22:16)
[2016-05-10] MEDS: diphenhydrAMINE HCL 50 MG CAPSULE PO PRN (22:17)
[2016-05-10 23:24] LABS: URINE APPEARANCE CLEAR; URINE BILIRUBIN NEGATIVE (NEGATIVE); URINE COLOR LTYELLOW; URINE GLUCOSE (UA) NEGATIVE (NEGATIVE); URINE KETONE NEGATIVE (NEGATIVE); URINE LEUK ESTERASE NEGATIVE (NEGATIVE); URINE NITRITE NEGATIVE (NEGATIVE); URINE PROTEIN NEGATIVE (NEGATIVE); URINE UROBILINOGEN NEGATIVE E.U./dl (0.2-1.0)
[2016-05-10 23:25] LABS: URINE BLOOD 1+ (NEGATIVE)
[2016-05-10 23:39] LABS: URINE MUCUS RARE; URINE RBC 5 /hpf (0-3); URINE WBC 1 /hpf (3-5)
[2016-05-11] MEDS: chlordiazePOXIDE HCL 25 MG CAPSULE PO SCH ×3 (05:32→17:35)
[2016-05-11 09:48] LABS: MCH 28.8 pg (25.7-33.7); MCHC 33.5 g/dl (32.0-35.9); MEAN CELL VOLUME 85.9 fl (80-96); MEAN PLT VOLUME 7.4 fl (7.5-11.1); PLATELET COUNT 282 K/MM3 (134-434); WHITE BLOOD COUNT 5.3 K/mm3 (4.0-10.0)
[2016-05-11 10:00] LABS: ALBUMIN 3.4 g/dl (3.4-5.0); ANION GAP 6 (8-16); CALCIUM 8.7 mg/dL (8.5-10.1); CO2 30 mmol/L (21-32); GLUCOSE,RANDOM 97 mg/dL (74-106)
[2016-05-11 10:03] LABS: ALK PHOS 56 U/L (45-117); BILIRUBIN,TOTAL 0.4 mg/dL (0.2-1.0); CREATININE 1.2 mg/dL (0.7-1.3); SGOT/AST 17 U/L (15-37); SGPT/ALT 25 U/L (12-78); TOT PROT 7.1 g/dl (6.4-8.2)
--- NOTE | 2016-05-11 10:11 | EKG ---
Test Reason : Blood Pressure : / mmHG Vent. Rate : 070 BPM Atrial Rate : 070 BPM P-R Int : 136 ms QRS Dur : 090 ms QT Int : 408 ms P-R-T Axes : 071 035 060 degrees QTc Int : 440 ms NORMAL SINUS RHYTHM POSSIBLE LEFT ATRIAL ENLARGEMENT LEFT VENTRICULAR HYPERTROPHY ABNORMAL ECG NO PREVIOUS ECGS AVAILABLE Confirmed by TETE ARREDONDO, KELSEY ([id number]) on 05/11/2016 10:11:05 AM Referred By: Beni Milton Confirmed By:KELSEY EPSTEIN MD
[2016-05-11] MEDS: PRENATAL VITAMINS W/ FOLIC ACID TABLET (FP) PO SCH (10:25)
[2016-05-11] MEDS: RANITIDINE HCL 150 MG TABLET (FP) PO SCH ×2 (10:26→22:14)
[2016-05-11] MEDS: NICOTINE 14 MG/24 HOURS TOPICAL PATCH TD SCH (10:27)
--- NOTE | 2016-05-11 10:43 | PN ---
S CIWA - CIWA Score Nausea/Vomitin-No Nausea/No Vomiting Muscle Tremors: 4-Moderate,w/Arms Extend Anxiety: 4-Mod. Anxious/Guarded Agitation: 4-Moderately Restless Paroxysmal Sweats: 3 Orientation: 0-Oriented Tacttile Disturbances: 0-None Auditory Disturbances: 0-None Visual Disturbances: 0-None Headache: 0-None Present CIWA-Ar Total Score: 15 BHS Progress Note (SOAP) Subjective: sweats interrupted sleep shakes chills Objective: 05/11/16 10:42 Vital Signs Temperature 98.1 F 05/11/16 09:57 Pulse Rate 79 05/11/16 09:57 Respiratory Rate 20 05/11/16 09:57 Blood Pressure 121/75 05/11/16 09:57 O2 Sat by Pulse Oximetry (%) Laboratory Tests 05/10/16 05/11/16 05/11/16 21:23 07:00 07:00 WBC 5.3 RBC 4.65 Hgb 13.4 D Hct 40.0 MCV 85.9 MCHC 33.5 RDW 15.0 Plt Count 282 MPV 7.4 L Sodium 140 Potassium 4.2 Chloride 104 Carbon Dioxide 30 Anion Gap 6 L BUN 14 D Creatinine 1.2 Creat Clearance w eGFR > 60 Random Glucose 97 D Calcium 8.7 Total Bilirubin 0.4 D AST 17 D ALT 25 Alkaline Phosphatase 56 Total Protein 7.1 Albumin 3.4 Urine Color Ltyellow Urine Appearance Clear Urine pH 6.0 Ur Specific [place] 1.011 Urine Protein Negative Urine Glucose (UA) Negative Urine Ketones Negative Urine Blood 1+ H Urine Nitrite Negative Urine Bilirubin Negative Urine Urobilinogen Negative Ur Leukocyte Esterase Negative Urine RBC 5 Urine WBC 1 Urine Mucus Rare awake/alert lying in bed no acute distress Assessment: 05/11/16 10:42 withdrawal sx Plan: continue detox increase fluids
--- NOTE | 2016-05-11 12:09 | CONSULT ---
[facility] Psychiatric Consult - Data Date of interview: 05/11/16 Admission source: [facility] Identifying data: Readmission to [facility] for this 70 y/o [place]-born male seeking detox treatment for alcohol and cocaine (crack) dependence.Patient is ,a father of six,homeless,unemployed and supported on SSI/SSD benefits. Substance Abuse History: - Smoking Cessation. Smoking history: Current every day smoker. Have you smoked in the past 12 months: Yes. Aproximately how many cigarettes per day: 5. Cigars Per Day: 0. Hx Chewing Tobacco Use: No. Initiated information on smoking cessation: Yes. 'Breaking Loose' booklet given : 05/10/16. - Substance & Tx. History. Hx Alcohol Use: Yes. Substance Use Type: Alcohol, Cocaine. Hx Substance Use Treatment: Yes. - Substances Abused. Alcohol. Route: Oral. Frequency: 3-6 times per week. Amount used: [id number] BEER. Age of first use: 19. Date of Last Use: 05/10/16. Confirmed by patient. Medical History: Arthritis,low back pain,hyperthyroidism and benign prostatic hyperplasia. Psychiatric History: Patient denies. Physical/Sexual Abuse/Trauma History: Patient denies history of sexual abuse.Experiences sadness over the of a female friend ( of medical causes months ago). Additional Comment: Urine Drug Screen Results: REANNA-Cocaine.Noted. Mental Status Exam - Mental Status Exam Alert and Oriented to: Time, Place, Person Cognitive Function: Good Patient Appearance: Well Groomed Mood: Withdrawn, Anxious Affect: Mood Congruent Patient Behavior: Fatigued, Appropriate, Cooperative Speech Pattern: Clear, Appropriate Voice Loudness: Normal Thought Process: Goal Oriented Thought Disorder: Not Present Hallucinations: Denies Suicidal Ideation: Denies Homicidal Ideation: Denies Insight/Judgement: Poor Sleep: Fair Appetite: Good Muscle strength/Tone: Normal Gait/Station: Normal Psychiatric Findings - Problem List ([place] 1, 2,3) (1) Alcohol dependence with uncomplicated withdrawal Current Visit: Yes Status: Acute (2) Cocaine dependence, uncomplicated Current Visit: Yes Status: Acute (3) Nicotine dependence Current Visit: Yes Status: Acute (4) Substance induced mood disorder Current Visit: Yes Status: Acute (5) BPH (benign prostatic hyperplasia) Current Visit: Yes Status: Chronic Qualifiers: Prostatic enlargement morphology: non-nodular Lower urinary tract symptom presence: symptoms absent Qualified Code(s): N40.0 - Benign prostatic hyperplasia without lower urinary tract symptoms (6) GERD (gastroesophageal reflux disease) Current Visit: Yes Status: Chronic Qualifiers: Esophagitis presence: without esophagitis Qualified Code(s): K21.9 - Gastro-esophageal reflux disease without esophagitis (7) Weight loss Current Visit: Yes Status: Chronic (8) Arthritis Current Visit: Yes Status: Chronic Comment: lidocaine patch (9) Thyroid disease Current Visit: Yes Status: Chronic - Initial Treatment Plan Initial Treatment Plan: Psychoeducation.Detoxification.Observation.
[2016-05-11] MEDS: guaiFENesin/D-METHORPHAN HB 10 ML UNIT-DOSE CUPS PO PRN ×2 (15:33→22:15)
[2016-05-11] MEDS: ACETAMINOPHEN 325 MG TABLET (FP) PO PRN (15:34)
[2016-05-11] MEDS: diphenhydrAMINE HCL 50 MG CAPSULE PO PRN (22:14)
[2016-05-11] MEDS: TAMSULOSIN HCL 0.4 MG CAP.ER.24H (FP) PO SCH (22:14)
[2016-05-11] MEDS: chlordiazePOXIDE 5 MG CAPSULE PO SCH (22:14)
[2016-05-11] MEDS: THIAMINE HCL 100 MG TABLET (FP) PO SCH (22:16)
[2016-05-12] MEDS: chlordiazePOXIDE HCL 25 MG CAPSULE PO PRN (02:27)
[2016-05-12] MEDS: chlordiazePOXIDE 5 MG CAPSULE PO SCH ×3 (05:46→18:07)
--- NOTE | 2016-05-12 10:14 | PN ---
S CIWA - CIWA Score Nausea/Vomitin-No Nausea/No Vomiting Muscle Tremors: 4-Moderate,w/Arms Extend Anxiety: 3 Agitation: 3 Paroxysmal Sweats: 2 Orientation: 0-Oriented Tacttile Disturbances: 0-None Auditory Disturbances: 0-None Visual Disturbances: 0-None Headache: 0-None Present CIWA-Ar Total Score: 12 S Progress Note (SOAP) Subjective: sweats chills interrupted sleep Objective: 05/12/16 10:13 Vital Signs Temperature 97.6 F 05/12/16 06:28 Pulse Rate 71 05/12/16 06:28 Respiratory Rate 16 05/12/16 06:28 Blood Pressure 100/67 05/12/16 06:28 O2 Sat by Pulse Oximetry (%) Laboratory Tests 05/10/16 05/11/16 05/11/16 21:23 07:00 07:00 WBC 5.3 RBC 4.65 Hgb 13.4 D Hct 40.0 MCV 85.9 MCHC 33.5 RDW 15.0 Plt Count 282 MPV 7.4 L Sodium 140 Potassium 4.2 Chloride 104 Carbon Dioxide 30 Anion Gap 6 L BUN 14 D Creatinine 1.2 Creat Clearance w eGFR > 60 Random Glucose 97 D Calcium 8.7 Total Bilirubin 0.4 D AST 17 D ALT 25 Alkaline Phosphatase 56 Total Protein 7.1 Albumin 3.4 Urine Color Ltyellow Urine Appearance Clear Urine pH 6.0 Ur Specific [place] 1.011 Urine Protein Negative Urine Glucose (UA) Negative Urine Ketones Negative Urine Blood 1+ H Urine Nitrite Negative Urine Bilirubin Negative Urine Urobilinogen Negative Ur Leukocyte Esterase Negative Urine RBC 5 Urine WBC 1 Urine Mucus Rare RPR Titer 05/11/16 07:00 WBC RBC Hgb Hct MCV MCHC RDW Plt Count MPV Sodium Potassium Chloride Carbon Dioxide Anion Gap BUN Creatinine Creat Clearance w eGFR Random Glucose Calcium Total Bilirubin AST ALT Alkaline Phosphatase Total Protein Albumin Urine Color Urine Appearance Urine pH Ur Specific [place] Urine Protein Urine Glucose (UA) Urine Ketones Urine Blood Urine Nitrite Urine Bilirubin Urine Urobilinogen Ur Leukocyte Esterase Urine RBC Urine WBC Urine Mucus RPR Titer Nonreactive awake/alert ambulating no acute distress Assessment: 05/12/16 10:13 withdrawal sx Plan: continue detox increase fluids d/c in am
[2016-05-12] MEDS: RANITIDINE HCL 150 MG TABLET (FP) PO SCH ×2 (10:51→22:18)
[2016-05-12] MEDS: NICOTINE 14 MG/24 HOURS TOPICAL PATCH TD SCH (10:51)
[2016-05-12] MEDS: PRENATAL VITAMINS W/ FOLIC ACID TABLET (FP) PO SCH (10:51)
[2016-05-12] MEDS: ACETAMINOPHEN 325 MG TABLET (FP) PO PRN (10:53)
[2016-05-12] MEDS ORDERED: CYCLOBENZAPRINE HCL 10 MG TABLET (FP) ONE (17:34)
[2016-05-12] MEDS: CYCLOBENZAPRINE HCL 10 MG TABLET (FP) PO PRN ×2 (18:07→22:18)
[2016-05-12] MEDS: chlordiazePOXIDE HCL 10 MG CAPSULE PO SCH (22:18)
[2016-05-12] MEDS: TAMSULOSIN HCL 0.4 MG CAP.ER.24H (FP) PO SCH (22:18)
[2016-05-12] MEDS: THIAMINE HCL 100 MG TABLET (FP) PO SCH (22:18)
[2016-05-12] MEDS: diphenhydrAMINE HCL 50 MG CAPSULE PO PRN (22:20)
[2016-05-13] MEDS: chlordiazePOXIDE HCL 10 MG CAPSULE PO SCH (05:36)
[2016-05-13 06:41] VITALS: BP 122/71; PULSE 84; TEMP 97.9
--- NOTE | 2016-05-13 09:51 | DS ---
[facility] Detox Discharge Summary Admission Date: 05/10/16 Discharge Date: 05/13/16 - History Present History: Alcohol Dependence, Cocaine Dependence - Physical Exam Results Vital Signs: Vital Signs Temperature 97.9 F 05/13/16 06:41 Pulse Rate 84 05/13/16 06:41 Respiratory Rate 16 05/13/16 06:41 Blood Pressure 122/71 05/13/16 06:41 O2 Sat by Pulse Oximetry (%) - Treatment Hospital Course: Detox Protocol Followed, Detoxed Safely, Responded well, Discharged Condition Good, Rehab Referral Accepted - Medication Discharge Medications: Ambulatory Orders Tamsulosin HCl [Flomax -] 0.4 mg PO DAILY@0830 #30 [email or web address] 02/25/16 - Diagnosis (1) Alcohol dependence with uncomplicated withdrawal Current Visit: Yes Status: Chronic (2) Cocaine dependence, uncomplicated Current Visit: Yes Status: Chronic (3) Nicotine dependence Current Visit: Yes Status: Chronic Qualifiers: Nicotine product type: cigarettes Substance use status: uncomplicated Qualified Code(s): F17.210 - Nicotine dependence, cigarettes, uncomplicated (4) Substance induced mood disorder Current Visit: Yes Status: Acute (5) Arthritis Current Visit: Yes Status: Chronic (6) BPH (benign prostatic hyperplasia) Current Visit: Yes Status: Chronic Qualifiers: Prostatic enlargement morphology: non-nodular Lower urinary tract symptom presence: symptoms absent Qualified Code(s): N40.0 - Benign prostatic hyperplasia without lower urinary tract symptoms (7) GERD (gastroesophageal reflux disease) Current Visit: Yes Status: Chronic Qualifiers: Esophagitis presence: without esophagitis Qualified Code(s): K21.9 - Gastro-esophageal reflux disease without esophagitis (8) Thyroid disease Current Visit: Yes Status: Chronic (9) Weight loss Current Visit: Yes Status: Chronic (10) Acute depression Current Visit: No Status: Acute (11) Bereavement Current Visit: No Status: Acute - AMA Did Patient Leave Against Medical Advice: No
== END 2016-05-13 09:04 | disposition home or self-care (01) | DRG 897 ==
LOC: YASAS 14:55 → Y6N 18:54
PROVIDERS: ADMIT Internal Medicine Addiction Medicine; ATTEND Internal Medicine Addiction Medicine
PROC: HZ2ZZZZ Detoxification Services for Substance Abuse Treatment (ICD-10-PCS; principal; 2016-05-13)
DX: F10.230 Alcohol dependence with withdrawal, uncomplicated (principal); F14.20 Cocaine dependence, uncomplicated; F19.20 Other psychoactive substance dependence, uncomplicated; Z68.1 Body mass index [BMI] 19.9 or less, adult; F17.210 Nicotine dependence, cigarettes, uncomplicated; F32.9 Major depressive disorder, single episode, unspecified; K21.9 Gastro-esophageal reflux disease without esophagitis; M12.9 Arthropathy, unspecified; R63.4 Abnormal weight loss
CPT/HCPCS: 36415; 80053; 81003; 81015; 85027; 86593; 93005; 93010

== ENCOUNTER 2017-04-26 10:56 | Inpatient (IN) | payer OTHER ==
--- NOTE | 2017-04-26 14:58 | HP ---
CIWA Score - CIWA Score Nausea/Vomitin Muscle Tremors: 3 Anxiety: 3 Agitation: 3 Paroxysmal Sweats: 1-Minimal Palms Moist Orientation: 0-Oriented Tacttile Disturbances: 1-Very Mild Itch/Numbness Auditory Disturbances: 1-Very Mild Visual Disturbances: 1-Very Mild Sensitivity Headache: 2-Mild CIWA-Ar Total Score: 18 Admission ROS BHS - HPI Chief Complaint: I NEED HELP TO STOP DRINKING ALCOHOL AND CRACK Allergies/Adverse Reactions: Allergies Allergy/AdvReac Type Severity Reaction Status Date / Time No Known Allergies Allergy Verified 04/26/17 14:43 History of Present Illness: THIS 1 EARS OLD WITH ALCOHOL AND CRACK DEPENDENCE,SEEKING DETOX,WITHDRAWAL SYMPTOM,LAST DETOX TO 05/13/16 BPH ON MEDICATION NICOTINE DEPENDENCE NO SIGNIFICANT PERIOD OF SOBRIETY ARTHRITIS WEIGHT LOSS Exam Limitations: No Limitations - Ebola screening Have you traveled outside of the country in the last 21 days: No Have you had contact with anyone from an Ebola affected area: No Have you been sick,other than usual withdrawal symptoms: No - Review of Systems Constitutional: Loss of Appetite, Malaise, Night Sweats, Changes in sleep, Weakness, Unintentional Wgt. Loss EENT: reports: Nose Congestion, Other (ENLARGEMENT OF THYROID GLAND FOR 25 YEAS) Respiratory: reports: No Symptoms reported Cardiac: reports: No Symptoms Reported GI: reports: Nausea, Vomiting, Abdominal cramping : reports: No Symptoms Reported Musculoskeletal: reports: Back Pain, Muscle Pain Integumentary: reports: Dryness Neuro: reports: Headache, Tremors Endocrine: reports: No Symptoms Reported Hematology: reports: No Symptoms Reported Psychiatric: reports: No Sypmtoms Reported, Judgement Intact, Mood/Affect Appropiate, Orientated x3, Depressed Patient History - Patient Medical History Hx Anemia: No Hx Asthma: No Hx Chronic Obstructive Pulmonary Disease (COPD): No Hx Cancer: No Hx Cardiac Disorders: No Hx Congestive Heart Failure: No Hx Hypertension: No Hx Hypercholesterolemia: No Hx Pacemaker: No HX Cerebrovascular Accident: No Hx Seizures: No Hx Dementia: No Hx Diabetes: No Hx Gastrointestinal Disorders: No Hx Liver Disease: No Hx Genitourinary Disorders: No Hx Sexually Transmitted Disorders: No Hx Renal Disease (ESRD): No Hx Thyroid Disease: No Hx Human Immunodeficiency Virus (HIV): No (2014 NEGATIVE) Hx Hepatitis C: No Hx Depression: Yes Hx Suicide Attempt: No Hx Bipolar Disorder: No Hx Schizophrenia: No Other Medical History: NO SUIIDAL,NO HOMICIDAL,ENLARGEMENT OF THYROID FOR 25 YEARS - Patient Surgical History Past Surgical History: No Hx Neurologic Surgery: No Hx Cataract Extraction: No Hx Cardiac Surgery: No Hx Lung Surgery: No Hx Breast Surgery: No Hx Breast Biopsy: No Hx Abdominal Surgery: No Hx Appendectomy: No Hx Cholecystectomy: No Hx Genitourinary Surgery: No Hx Section: No Hx Orthopedic Surgery: No Anesthesia Reaction: No - PPD History Previous Implant?: Yes Documented Results: Negative w/o proof Date: 02/07/16 PPD to be Administered?: Yes - Smoking Cessation Smoking history: Current every day smoker Have you smoked in the past 12 months: Yes Aproximately how many cigarettes per day: 5 Cigars Per Day: 0 Hx Chewing Tobacco Use: No Initiated information on smoking cessation: Yes 'Breaking Loose' booklet given: 04/26/17 - Substance & Tx. History Hx Alcohol Use: Yes Hx Substance Use: Yes Substance Use Type: Alcohol, Cocaine Hx Substance Use Treatment: Yes ([facility] 05/10/16 TO 05/13/16) - Substances Abused Crack Route: Smoking Frequency: Daily Amount used: 3 bags Age of first use: 35 Date of Last Use: 04/25/17 Alcohol Route: Oral Frequency: 1-2 times per week Amount used: 2 40 oz beer, 1/2 pint vodka Age of first use: 19 Date of Last Use: 04/26/17 Family Disease History - Family Disease History Family Disease History: Diabetes: Mother (), Brother, Other: Father ( ) Admission Physical Exam [facility] - Vital Signs Vital Signs: Vital Signs - 24 hr 04/26/17 13:24 Temperature 97 F L Pulse Rate 74 Respiratory 20 Rate Blood Pressure 127/67 - Physical General Appearance: Yes: Moderate Distress, Tremorous, Irritable, Sweating, Anxious HEENTM: Yes: Normal ENT Inspection, YURI, Pharynx Normal, Other (ENLARGEMENT OF THYROID RIGHT) Respiratory: Yes: Lungs Clear, Normal Breath Sounds, No Respiratory Distress Neck: Yes: Within Normal Limits, Supple, Trachea in good position Breast: Yes: Within Normal Limits Cardiology: Yes: Within Normal Limits, Regular Rhythm, Regular Rate, S1, S2 Abdominal: Yes: Normal Bowel Sounds, Non Tender, Soft Genitourinary: Yes: Within Normal Limits, Other (BPH) Back: Yes: Muscle Spasm Musculoskeletal: Yes: Back pain, Muscle Pain Extremities: Yes: Tremors Neurological: Yes: internet database specialist II-XII NML intact, Fully Oriented, Alert, Motor Strength 5/5 Integumentary: Yes: Dry Lymphatic: Yes: Within Normal Limits - Diagnostic (1) Alcohol dependence with uncomplicated withdrawal Current Visit: No Status: Chronic (2) Thyroid mass Current Visit: Yes Status: Acute (3) Arthritis Current Visit: No Status: Chronic Comment: lidocaine patch (4) BPH (benign prostatic hyperplasia) Current Visit: No Status: Chronic Qualifiers: Lower urinary tract symptom presence: symptoms absent (5) Cocaine dependence, uncomplicated Current Visit: No Status: Chronic (6) GERD (gastroesophageal reflux disease) Current Visit: No Status: Chronic Qualifiers: Esophagitis presence: without esophagitis Qualified Code(s): K21.9 - Gastro -esophageal reflux disease without esophagitis (7) Nicotine dependence Current Visit: No Status: Chronic Qualifiers: Nicotine product type: cigarettes Substance use status: uncomplicated Qualified Code(s): F17.210 - Nicotine dependence, cigarettes, uncomplicated (8) Weight loss Current Visit: No Status: Chronic Cleared for Admission S - Detox or Rehab [facility] Level of Care: Medically Managed Detox Regimen/Protocol: Librium S Breath Alcohol Content Breath Alcohol Content: 0 Urine Drug Screen - Results Drug Screen Negative: No Urine Drug Screen Results: REANNA-Cocaine
[2017-04-26] MEDS ORDERED: PNEUMOC 13-VAL CONJ-DIP CRM/PF 0.5 ML DISP.SYRIN IM ONE (15:17)
[2017-04-26] MEDS ORDERED: hydrOXYzine PAMOATE 25 MG CAPSULE (FP) PO PRN (15:20)
[2017-04-26] MEDS ORDERED: chlordiazePOXIDE HCL 25 MG CAPSULE PO PRN (15:20)
[2017-04-26] MEDS ORDERED: MAGNESIUM CITRATE 300 ML BOTTLE PO PRN (15:20)
[2017-04-26] MEDS ORDERED: guaiFENesin/D-METHORPHAN HB 10 ML UNIT-DOSE CUPS PO PRN (15:20)
[2017-04-26] MEDS ORDERED: MENTHOL/PHENOL 1 EACH UD MM PRN (15:20)
[2017-04-26] MEDS ORDERED: MAG HYDROX/AL HYDROX/SIMETH 30 ML UNIT-DOSE CUP PO PRN (15:20)
[2017-04-26] MEDS ORDERED: ACETAMINOPHEN 325 MG TABLET (FP) PO PRN (15:20)
[2017-04-26] MEDS ORDERED: MAGNESIUM HYDROX 2400MG/30ML ORAL SUSPENSION 30 ML CUP PO PRN (15:20)
[2017-04-26] MEDS ORDERED: P-EPHED 60MG/TRIPROLIDI 2.5MG TABLET PO PRN (15:20)
[2017-04-26] MEDS ORDERED: LOPERAMIDE HCL 2 MG CAPSULE PO PRN (15:20)
[2017-04-26] MEDS ORDERED: chlordiazePOXIDE HCL 25 MG CAPSULE PO ONE (15:20)
[2017-04-26] MEDS ORDERED: IBUPROFEN 400 MG TABLET (FP) PO PRN (15:20)
[2017-04-26] MEDS: chlordiazePOXIDE HCL 25 MG CAPSULE PO SCH ×2 (19:19→22:15)
[2017-04-26 21:09] LABS: URINE APPEARANCE CLEAR; URINE BILIRUBIN NEGATIVE (NEGATIVE); URINE BLOOD NEGATIVE (NEGATIVE); URINE COLOR LTYELLOW; URINE GLUCOSE (UA) NEGATIVE (NEGATIVE); URINE KETONE NEGATIVE (NEGATIVE); URINE LEUK ESTERASE NEGATIVE (NEGATIVE); URINE NITRITE NEGATIVE (NEGATIVE); URINE PROTEIN NEGATIVE (NEGATIVE); URINE UROBILINOGEN NEGATIVE mg/dL (0.2-1.0)
[2017-04-26] MEDS: MELATONIN 5 MG TABLETS PO SCH (22:13)
[2017-04-26] MEDS: THIAMINE HCL 100 MG TABLET (FP) PO SCH (22:13)
[2017-04-27] MEDS: chlordiazePOXIDE HCL 25 MG CAPSULE PO SCH ×4 (05:58→22:33)
--- NOTE | 2017-04-27 08:21 | EKG ---
Test Reason : Blood Pressure : / mmHG Vent. Rate : 065 BPM Atrial Rate : 065 BPM P-R Int : 138 ms QRS Dur : 092 ms QT Int : 412 ms P-R-T Axes : 068 055 064 degrees QTc Int : 428 ms NORMAL SINUS RHYTHM POSSIBLE LEFT ATRIAL ENLARGEMENT LEFT VENTRICULAR HYPERTROPHY ABNORMAL ECG WHEN COMPARED WITH ECG OF 10-MAY-2016 19:02, NO SIGNIFICANT CHANGE WAS FOUND Confirmed by TETE ARREDONDO, KELSEY ([id number]) on 04/27/2017 8:21:29 AM Referred By: Confirmed By:KELSEY EPSTEIN MD
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
[2017-04-27 10:05] LABS: HEMATOCRIT 39.3 % (35.4-49); HEMOGLOBIN 13.1 GM/dL (11.7-16.9); MCHC 33.4 g/dl (32.0-35.9); MEAN CELL VOLUME 89.8 fl (80-96); MEAN PLT VOLUME 7.3 fl (7.5-11.1); PLATELET COUNT 249 K/MM3 (134-434); RBC 4.37 M/mm3 (4.00-5.60); RDW 14.2 % (11.9-15.9)
[2017-04-27 10:14] LABS: ALBUMIN 3.1 g/dl (3.4-5.0); CHLORIDE 107 mmol/L (98-107); POTASSIUM 3.8 mmol/L (3.5-5.1); SODIUM 143 mmol/L (136-145)
[2017-04-27 10:19] LABS: ALK PHOS 49 U/L (45-117); ANION GAP 11 (8-16); BILIRUBIN,TOTAL 0.4 mg/dL (0.2-1.0); BLOOD UREA NITROGEN 21 mg/dL (7-18); CALCIUM 8.8 mg/dL (8.5-10.1); CO2 25 mmol/L (21-32); GLUCOSE,RANDOM 118 mg/dL (74-106); SGOT/AST 18 U/L (15-37); SGPT/ALT 22 U/L (12-78); TOT PROT 6.4 g/dl (6.4-8.2)
[2017-04-27] MEDS: TAMSULOSIN HCL 0.4 MG CAP.ER.24H (FP) PO SCH (11:45)
[2017-04-27] MEDS: PRENATAL VITAMINS W/ FOLIC ACID TABLET (FP) PO SCH (11:45)
[2017-04-27] MEDS: FINASTERIDE 5 MG TABLET (FP) PO SCH (11:46)
[2017-04-27] MEDS ORDERED: PNEUMOCOCCAL 23 VACCINE 0.5 ML VIAL IM ONE (12:00)
[2017-04-27] MEDS ORDERED: FLU VACCINE QUAD 60 MCG/0.5 ML (MDV 17-18) IM ONE (12:00)
--- NOTE | 2017-04-27 12:59 | PN ---
[facility] CIWA - CIWA Score Nausea/Vomitin-No Nausea/No Vomiting Muscle Tremors: 3 Anxiety: 4-Mod. Anxious/Guarded Agitation: 0-Normal Activity Paroxysmal Sweats: 3 Orientation: 0-Oriented Tacttile Disturbances: 3-Moderate Itch/Numb/Burn Auditory Disturbances: 0-None Visual Disturbances: 2-Mild Sensitivity Headache: 0-None Present CIWA-Ar Total Score: 15 BHS Progress Note (SOAP) Subjective: Sweating, Interrupted sleep, Fatigue, Anxious. Objective: PATIENT A & O X 3. NO ACUTE DISTRESS. 04/27/17 12:57 Vital Signs Temperature 96.0 F L 04/27/17 10:00 Pulse Rate 83 04/27/17 10:00 Respiratory Rate 20 04/27/17 10:00 Blood Pressure 110/76 04/27/17 10:00 O2 Sat by Pulse Oximetry (%) Laboratory Tests 04/26/17 04/27/17 04/27/17 20:00 07:30 07:30 WBC 4.0 RBC 4.37 Hgb 13.1 Hct 39.3 MCV 89.8 MCH 30.0 MCHC 33.4 RDW 14.2 Plt Count 249 MPV 7.3 L Sodium Potassium Chloride Carbon Dioxide Anion Gap BUN Creatinine Creat Clearance w eGFR Random Glucose Calcium Total Bilirubin AST ALT Alkaline Phosphatase Total Protein Albumin TSH Urine Color Ltyellow Urine Appearance Clear Urine pH 6.0 Ur Specific [place] 1.011 Urine Protein Negative Urine Glucose (UA) Negative Urine Ketones Negative Urine Blood Negative Urine Nitrite Negative Urine Bilirubin Negative Urine Urobilinogen Negative Ur Leukocyte Esterase Negative RPR Titer HIV 1&2 Antibody Screen Negative HIV P24 Antigen Negative 04/27/17 04/27/17 07:30 07:30 WBC RBC Hgb Hct MCV MCH MCHC RDW Plt Count MPV Sodium 143 Potassium 3.8 Chloride 107 Carbon Dioxide 25 Anion Gap 11 BUN 21 H D Creatinine 1.0 Creat Clearance w eGFR > 60 Random Glucose 118 H D Calcium 8.8 Total Bilirubin 0.4 AST 18 ALT 22 Alkaline Phosphatase 49 Total Protein 6.4 Albumin 3.1 L TSH 0.53 D Urine Color Urine Appearance Urine pH Ur Specific [place] Urine Protein Urine Glucose (UA) Urine Ketones Urine Blood Urine Nitrite Urine Bilirubin Urine Urobilinogen Ur Leukocyte Esterase RPR Titer Nonreactive HIV 1&2 Antibody Screen HIV P24 Antigen LABS NOTED. Assessment: 04/27/17 12:58 WITHDRAWAL SYMPTOMS. Plan: CONTINUE DETOX. INCREASE DAILY PO FLUID INTAKE.
[2017-04-27] MEDS ORDERED: TAMSULOSIN HCL 0.4 MG CAP.ER.24H (FP) PO ONE ×2 (15:19→18:00)
[2017-04-27] MEDS ORDERED: ZOLPIDEM TARTRATE 5 MG TABLET PO PRN (22:00)
[2017-04-27] MEDS: IBUPROFEN 600 MG TABLET (FP) PO PRN (22:33)
[2017-04-27] MEDS: MELATONIN 5 MG TABLETS PO SCH (22:34)
[2017-04-27] MEDS: THIAMINE HCL 100 MG TABLET (FP) PO SCH (22:34)
[2017-04-28] MEDS: chlordiazePOXIDE HCL 25 MG CAPSULE PO SCH ×2 (05:39→10:23)
[2017-04-28] MEDS: TAMSULOSIN HCL 0.4 MG CAP.ER.24H (FP) PO SCH (10:23)
[2017-04-28] MEDS: FINASTERIDE 5 MG TABLET (FP) PO SCH (10:23)
[2017-04-28] MEDS: PRENATAL VITAMINS W/ FOLIC ACID TABLET (FP) PO SCH (10:23)
--- NOTE | 2017-04-28 11:51 | PN ---
S CIWA - CIWA Score Nausea/Vomitin-No Nausea/No Vomiting Muscle Tremors: 3 Anxiety: 4-Mod. Anxious/Guarded Agitation: 2 Paroxysmal Sweats: 3 Orientation: 0-Oriented Tacttile Disturbances: 2-Mild Itch/Numbness/Burn Auditory Disturbances: 0-None Visual Disturbances: 0-None Headache: 0-None Present CIWA-Ar Total Score: 14 BHS Progress Note (SOAP) Subjective: Sweating, Anxious, Body Aches. Objective: PATIENT A & O X 3, OBSERVED AMBULATING ON UNIT. NO ACUTE DISTRESS. 04/28/17 11:50 Vital Signs Temperature 95.3 F L 04/28/17 10:39 Pulse Rate 87 04/28/17 10:39 Respiratory Rate 20 04/28/17 10:39 Blood Pressure 102/66 04/28/17 10:39 O2 Sat by Pulse Oximetry (%) Laboratory Tests 04/26/17 04/27/17 04/27/17 20:00 07:30 07:30 WBC 4.0 RBC 4.37 Hgb 13.1 Hct 39.3 MCV 89.8 MCH 30.0 MCHC 33.4 RDW 14.2 Plt Count 249 MPV 7.3 L Sodium Potassium Chloride Carbon Dioxide Anion Gap BUN Creatinine Creat Clearance w eGFR Random Glucose Calcium Total Bilirubin AST ALT Alkaline Phosphatase Total Protein Albumin TSH Urine Color Ltyellow Urine Appearance Clear Urine pH 6.0 Ur Specific [place] 1.011 Urine Protein Negative Urine Glucose (UA) Negative Urine Ketones Negative Urine Blood Negative Urine Nitrite Negative Urine Bilirubin Negative Urine Urobilinogen Negative Ur Leukocyte Esterase Negative RPR Titer HIV 1&2 Antibody Screen Negative HIV P24 Antigen Negative 04/27/17 04/27/17 07:30 07:30 WBC RBC Hgb Hct MCV MCH MCHC RDW Plt Count MPV Sodium 143 Potassium 3.8 Chloride 107 Carbon Dioxide 25 Anion Gap 11 BUN 21 H D Creatinine 1.0 Creat Clearance w eGFR > 60 Random Glucose 118 H D Calcium 8.8 Total Bilirubin 0.4 AST 18 ALT 22 Alkaline Phosphatase 49 Total Protein 6.4 Albumin 3.1 L TSH 0.53 D Urine Color Urine Appearance Urine pH Ur Specific [place] Urine Protein Urine Glucose (UA) Urine Ketones Urine Blood Urine Nitrite Urine Bilirubin Urine Urobilinogen Ur Leukocyte Esterase RPR Titer Nonreactive HIV 1&2 Antibody Screen HIV P24 Antigen LABS NOTED. Assessment: 04/28/17 11:50 WITHDRAWAL SYMPTOMS. Plan: CONTINUE DETOX. INCREASE DAILY PO FLUID INTAKE.
[2017-04-28] MEDS: chlordiazePOXIDE 5 MG CAPSULE PO SCH ×2 (17:28→22:29)
[2017-04-28] MEDS: MELATONIN 5 MG TABLETS PO SCH (22:28)
[2017-04-28] MEDS: ZOLPIDEM TARTRATE 5 MG TABLET PO PRN (22:28)
[2017-04-28] MEDS: THIAMINE HCL 100 MG TABLET (FP) PO SCH (22:28)
[2017-04-28] MEDS: IBUPROFEN 600 MG TABLET (FP) PO PRN (22:30)
[2017-04-29] MEDS: chlordiazePOXIDE 5 MG CAPSULE PO SCH ×2 (05:14→11:09)
[2017-04-29] MEDS: FINASTERIDE 5 MG TABLET (FP) PO SCH (11:09)
[2017-04-29] MEDS: PRENATAL VITAMINS W/ FOLIC ACID TABLET (FP) PO SCH (11:09)
[2017-04-29] MEDS: IBUPROFEN 600 MG TABLET (FP) PO PRN (15:59)
--- NOTE | 2017-04-29 16:41 | PN ---
BHS Progress Note (SOAP) Subjective: Sweating, Anxious. Objective: PATIENT A & O X 3, OBSERVED AMBULATING ON UNIT. NO ACUTE DISTRESS. 04/29/17 16:40 Vital Signs Temperature 97 F L 04/29/17 13:47 Pulse Rate 91 H 04/29/17 13:47 Respiratory Rate 18 04/29/17 13:47 Blood Pressure 116/69 04/29/17 13:47 O2 Sat by Pulse Oximetry (%) Laboratory Tests 04/26/17 04/27/17 04/27/17 20:00 07:30 07:30 WBC 4.0 RBC 4.37 Hgb 13.1 Hct 39.3 MCV 89.8 MCH 30.0 MCHC 33.4 RDW 14.2 Plt Count 249 MPV 7.3 L Sodium Potassium Chloride Carbon Dioxide Anion Gap BUN Creatinine Creat Clearance w eGFR Random Glucose Calcium Total Bilirubin AST ALT Alkaline Phosphatase Total Protein Albumin TSH Urine Color Ltyellow Urine Appearance Clear Urine pH 6.0 Ur Specific [place] 1.011 Urine Protein Negative Urine Glucose (UA) Negative Urine Ketones Negative Urine Blood Negative Urine Nitrite Negative Urine Bilirubin Negative Urine Urobilinogen Negative Ur Leukocyte Esterase Negative RPR Titer HIV 1&2 Antibody Screen Negative HIV P24 Antigen Negative 04/27/17 04/27/17 07:30 07:30 WBC RBC Hgb Hct MCV MCH MCHC RDW Plt Count MPV Sodium 143 Potassium 3.8 Chloride 107 Carbon Dioxide 25 Anion Gap 11 BUN 21 H D Creatinine 1.0 Creat Clearance w eGFR > 60 Random Glucose 118 H D Calcium 8.8 Total Bilirubin 0.4 AST 18 ALT 22 Alkaline Phosphatase 49 Total Protein 6.4 Albumin 3.1 L TSH 0.53 D Urine Color Urine Appearance Urine pH Ur Specific [place] Urine Protein Urine Glucose (UA) Urine Ketones Urine Blood Urine Nitrite Urine Bilirubin Urine Urobilinogen Ur Leukocyte Esterase RPR Titer Nonreactive HIV 1&2 Antibody Screen HIV P24 Antigen LABS NOTED. Assessment: 04/29/17 16:40 WITHDRAWAL SYMPTOMS. Plan: CONTINUE DETOX.
[2017-04-29] MEDS: chlordiazePOXIDE HCL 10 MG CAPSULE PO SCH ×2 (17:23→22:42)
[2017-04-29] MEDS: TAMSULOSIN HCL 0.4 MG CAP.ER.24H (FP) PO SCH (17:23)
[2017-04-29] MEDS: MELATONIN 5 MG TABLETS PO SCH (22:42)
[2017-04-29] MEDS: THIAMINE HCL 100 MG TABLET (FP) PO SCH (22:42)
[2017-04-29] MEDS: ZOLPIDEM TARTRATE 5 MG TABLET PO PRN (22:43)
[2017-04-30] MEDS: chlordiazePOXIDE HCL 10 MG CAPSULE PO SCH ×2 (05:09→10:22)
[2017-04-30] MEDS: PRENATAL VITAMINS W/ FOLIC ACID TABLET (FP) PO SCH (10:20)
[2017-04-30] MEDS: FINASTERIDE 5 MG TABLET (FP) PO SCH (10:21)
--- NOTE | 2017-04-30 14:04 | PN ---
BHS Progress Note (SOAP) Subjective: Anxious, sweating, interrupted sleep. Patient requesting rehab admission from detox as he is afraid of relapsing if he's discharged. Patient instructed to speak with his counselor tomorrow regarding rehab bed availability. Patient can stay until Monday if no bed available on Monday. Objective: 04/30/17 14:01 Last Vital Signs Temp Pulse Resp BP Pulse Ox 98 F 99 H 20 115/66 04/30/17 14:00 04/30/17 14:00 04/30/17 14:00 04/30/17 14:00 Laboratory Tests 04/26/17 04/27/17 04/27/17 20:00 07:30 07:30 WBC 4.0 RBC 4.37 Hgb 13.1 Hct 39.3 MCV 89.8 MCH 30.0 MCHC 33.4 RDW 14.2 Plt Count 249 MPV 7.3 L Sodium Potassium Chloride Carbon Dioxide Anion Gap BUN Creatinine Creat Clearance w eGFR Random Glucose Calcium Total Bilirubin AST ALT Alkaline Phosphatase Total Protein Albumin TSH Urine Color Ltyellow Urine Appearance Clear Urine pH 6.0 Ur Specific [place] 1.011 Urine Protein Negative Urine Glucose (UA) Negative Urine Ketones Negative Urine Blood Negative Urine Nitrite Negative Urine Bilirubin Negative Urine Urobilinogen Negative Ur Leukocyte Esterase Negative RPR Titer HIV 1&2 Antibody Screen Negative HIV P24 Antigen Negative 04/27/17 04/27/17 07:30 07:30 WBC RBC Hgb Hct MCV MCH MCHC RDW Plt Count MPV Sodium 143 Potassium 3.8 Chloride 107 Carbon Dioxide 25 Anion Gap 11 BUN 21 H D Creatinine 1.0 Creat Clearance w eGFR > 60 Random Glucose 118 H D Calcium 8.8 Total Bilirubin 0.4 AST 18 ALT 22 Alkaline Phosphatase 49 Total Protein 6.4 Albumin 3.1 L TSH 0.53 D Urine Color Urine Appearance Urine pH Ur Specific [place] Urine Protein Urine Glucose (UA) Urine Ketones Urine Blood Urine Nitrite Urine Bilirubin Urine Urobilinogen Ur Leukocyte Esterase RPR Titer Nonreactive HIV 1&2 Antibody Screen HIV P24 Antigen Labs noted: bun 21 Assessment: 04/30/17 14:02 Withdrawal symptoms Noted with azotemia Plan: Continue detox Azotemia: encouraged PO water intake for hydration Cancel discharge as patient requesting rehab admission and is afraid of relapsing if discharged home
[2017-04-30] MEDS: TAMSULOSIN HCL 0.4 MG CAP.ER.24H (FP) PO SCH (17:01)
[2017-04-30] MEDS: THIAMINE HCL 100 MG TABLET (FP) PO SCH (22:14)
[2017-04-30] MEDS: MELATONIN 5 MG TABLETS PO SCH (22:14)
[2017-05-01 09:27] VITALS: BP 116/70; PULSE 91; TEMP 98.5
--- NOTE | 2017-05-01 10:27 | PN ---
BHS Progress Note (SOAP) Subjective: PT IS ALERT O X 3. DETOX COMPLETED. REFERRED TO REHAB FOR AFTERCARE. Objective: 05/01/17 10:26 Vital Signs Temperature 98.5 F 05/01/17 09:25 Pulse Rate 91 H 05/01/17 09:25 Respiratory Rate 20 05/01/17 09:25 Blood Pressure 116/70 05/01/17 09:25 O2 Sat by Pulse Oximetry (%) Laboratory Tests 04/26/17 04/27/17 04/27/17 20:00 07:30 07:30 WBC 4.0 RBC 4.37 Hgb 13.1 Hct 39.3 MCV 89.8 MCH 30.0 MCHC 33.4 RDW 14.2 Plt Count 249 MPV 7.3 L Sodium Potassium Chloride Carbon Dioxide Anion Gap BUN Creatinine Creat Clearance w eGFR Random Glucose Calcium Total Bilirubin AST ALT Alkaline Phosphatase Total Protein Albumin TSH Urine Color Ltyellow Urine Appearance Clear Urine pH 6.0 Ur Specific [place] 1.011 Urine Protein Negative Urine Glucose (UA) Negative Urine Ketones Negative Urine Blood Negative Urine Nitrite Negative Urine Bilirubin Negative Urine Urobilinogen Negative Ur Leukocyte Esterase Negative RPR Titer HIV 1&2 Antibody Screen Negative HIV P24 Antigen Negative 04/27/17 04/27/17 07:30 07:30 WBC RBC Hgb Hct MCV MCH MCHC RDW Plt Count MPV Sodium 143 Potassium 3.8 Chloride 107 Carbon Dioxide 25 Anion Gap 11 BUN 21 H D Creatinine 1.0 Creat Clearance w eGFR > 60 Random Glucose 118 H D Calcium 8.8 Total Bilirubin 0.4 AST 18 ALT 22 Alkaline Phosphatase 49 Total Protein 6.4 Albumin 3.1 L TSH 0.53 D Urine Color Urine Appearance Urine pH Ur Specific [place] Urine Protein Urine Glucose (UA) Urine Ketones Urine Blood Urine Nitrite Urine Bilirubin Urine Urobilinogen Ur Leukocyte Esterase RPR Titer Nonreactive HIV 1&2 Antibody Screen HIV P24 Antigen Assessment: 05/01/17 10:27 NAD Plan: CONTINUE DETOX
--- NOTE | 2017-05-01 10:32 | DS ---
[facility] Detox Discharge Summary Admission Date: 04/26/17 Discharge Date: 05/01/17 - History Present History: Alcohol Dependence, Cocaine Dependence Additional Comments: DETOX COMPLETED. ALERT O X 3. Pertinent Past History: PLEASE SEE DX BELOW - Physical Exam Results Vital Signs: Vital Signs Temperature 98.5 F 05/01/17 09:25 Pulse Rate 91 H 05/01/17 09:25 Respiratory Rate 20 05/01/17 09:25 Blood Pressure 116/70 05/01/17 09:25 O2 Sat by Pulse Oximetry (%) Pertinent Admission Physical Exam Findings: WITHDRAWAL SX Laboratory Last Values WBC 4.0 K/mm3 (4.0-10.0) 04/27/17 07:30 RBC 4.37 M/mm3 (4.00-5.60) 04/27/17 07:30 Hgb 13.1 GM/dL (11.7-16.9) 04/27/17 07:30 Hct 39.3 % (35.4-49) 04/27/17 07:30 MCV 89.8 fl (80-96) 04/27/17 07:30 MCH 30.0 pg (25.7-33.7) 04/27/17 07:30 MCHC 33.4 g/dl (32.0-35.9) 04/27/17 07:30 RDW 14.2 % (11.9-15.9) 04/27/17 07:30 Plt Count 249 K/MM3 (134-434) 04/27/17 07:30 MPV 7.3 fl (7.5-11.1) L 04/27/17 07:30 Sodium 143 mmol/L (136-145) 04/27/17 07:30 Potassium 3.8 mmol/L (3.5-5.1) 04/27/17 07:30 Chloride 107 mmol/L (98-107) 04/27/17 07:30 Carbon Dioxide 25 mmol/L (21-32) 04/27/17 07:30 Anion Gap 11 (8-16) 04/27/17 07:30 BUN 21 mg/dL (7-18) H D 04/27/17 07:30 Creatinine 1.0 mg/dL (0.7-1.3) 04/27/17 07:30 Creat Clearance w eGFR > 60 (>60) 04/27/17 07:30 Random Glucose 118 mg/dL (74-106) H D 04/27/17 07:30 Calcium 8.8 mg/dL (8.5-10.1) 04/27/17 07:30 Total Bilirubin 0.4 mg/dL (0.2-1.0) 04/27/17 07:30 AST 18 U/L (15-37) 04/27/17 07:30 ALT 22 U/L (12-78) 04/27/17 07:30 Alkaline Phosphatase 49 U/L (45-117) 04/27/17 07:30 Total Protein 6.4 g/dl (6.4-8.2) 04/27/17 07:30 Albumin 3.1 g/dl (3.4-5.0) L 04/27/17 07:30 TSH 0.53 uIU/ml (0.358-3.74) D 04/27/17 07:30 Urine Color Ltyellow 04/26/17 20:00 Urine Appearance Clear 04/26/17 20:00 Urine pH 6.0 (5.0-8.0) 04/26/17 20:00 Ur Specific [place] 1.011 (1.001-1.035) 04/26/17 20:00 Urine Protein Negative (NEGATIVE) 04/26/17 20:00 Urine Glucose (UA) Negative (NEGATIVE) 04/26/17 20:00 Urine Ketones Negative (NEGATIVE) 04/26/17 20:00 Urine Blood Negative (NEGATIVE) 04/26/17 20:00 Urine Nitrite Negative (NEGATIVE) 04/26/17 20:00 Urine Bilirubin Negative (NEGATIVE) 04/26/17 20:00 Urine Urobilinogen Negative mg/dL (0.2-1.0) 04/26/17 20:00 Ur Leukocyte Esterase Negative (NEGATIVE) 04/26/17 20:00 RPR Titer Nonreactive (NONREACTIVE) 04/27/17 07:30 HIV 1&2 Antibody Screen Negative 04/27/17 07:30 HIV P24 Antigen Negative 04/27/17 07:30 - Treatment Hospital Course: Detox Protocol Followed, Detoxed Safely, Responded well, Discharged Condition Good, Rehab Referral Accepted Patient has Accepted a Rehab Referral to: [facility] - Medication Discharge Medications: Ambulatory Orders Tamsulosin HCl [Flomax -] 0.4 mg PO DAILY@0830 #30 cap.er.[id number] 02/25/16 Finasteride [Proscar] 5 mg PO DAILY 04/26/17 Ibuprofen 600 mg PO TID PRN 04/26/17 Methocarbamol 500 mg PO HS 04/26/17 Zolpidem Tartrate [Ambien] 10 mg PO HS PRN 04/26/17 - Diagnosis (1) Alcohol dependence with uncomplicated withdrawal Current Visit: Yes Status: Acute (2) BPH (benign prostatic hyperplasia) Current Visit: Yes Status: Chronic Qualifiers: Lower urinary tract symptom presence: symptoms absent (3) Cocaine dependence, uncomplicated Current Visit: Yes Status: Chronic (4) GERD (gastroesophageal reflux disease) Current Visit: Yes Status: Chronic Qualifiers: Esophagitis presence: without esophagitis Qualified Code(s): K21.9 - Gastro -esophageal reflux disease without esophagitis (5) Nicotine dependence Current Visit: Yes Status: Chronic Qualifiers: Nicotine product type: cigarettes Substance use status: uncomplicated Qualified Code(s): F17.210 - Nicotine dependence, cigarettes, uncomplicated (6) Weight loss Current Visit: Yes Status: Chronic (7) Arthritis Current Visit: No Status: Chronic (8) Thyroid disease Current Visit: Yes Status: Chronic - AMA Did Patient Leave Against Medical Advice: No
[2017-05-01] MEDS: FINASTERIDE 5 MG TABLET (FP) PO SCH (10:34)
[2017-05-01] MEDS: PRENATAL VITAMINS W/ FOLIC ACID TABLET (FP) PO SCH (10:34)
== END 2017-05-01 12:40 | disposition home or self-care (01) | DRG 897 ==
LOC: YASAS 10:56 → Y3N 15:04
PROVIDERS: ADMIT Internal Medicine; ATTEND Internal Medicine
PROC: HZ2ZZZZ Detoxification Services for Substance Abuse Treatment (ICD-10-PCS; principal; 2017-04-26)
DX: F10.230 Alcohol dependence with withdrawal, uncomplicated (principal); F14.20 Cocaine dependence, uncomplicated; F17.210 Nicotine dependence, cigarettes, uncomplicated; G47.00 Insomnia, unspecified; K21.9 Gastro-esophageal reflux disease without esophagitis; N40.0 Benign prostatic hyperplasia without lower urinary tract symptoms; M19.90 Unspecified osteoarthritis, unspecified site; R79.89 Other specified abnormal findings of blood chemistry; E04.1 Nontoxic single thyroid nodule; Z87.898 Personal history of other specified conditions
CPT/HCPCS: 36415; 80053; 81003; 84443; 85027; 86593; 87389; 93005; 93010

== ENCOUNTER 2017-05-02 11:38 | Inpatient (IN) | payer OTHER ==
[2017-05-02 11:49] VITALS: BMI 20.4
--- NOTE | 2017-05-02 12:46 | HP ---
Admission ROS [facility] Chief Complaint: "I want to stop smoking crack." Patient is here for rehab for Crack Cocaine. Allergies/Adverse Reactions: Allergies Allergy/AdvReac Type Severity Reaction Status Date / Time No Known Allergies Allergy Verified 05/02/17 12:35 History of Present Illness: Patient is a 71 YO male here for Rehab for Crack Cocaine use. Patient has had several previous Detox / Rehab admissions at [facility]. Patient completed Detox at [facility] yesterday, 05/01/2017. Exam Limitations: No Limitations - Ebola screening Have you traveled outside of the country in the last 21 days: No Have you had contact with anyone from an Ebola affected area: No Have you been sick,other than usual withdrawal symptoms: No Do you have a fever: No - Review of Systems Constitutional: Loss of Appetite, Malaise EENT: reports: Cataracts (Right Eye.), Dental Problems (Upper Denture, patient did not bring with him today. Patient missing several lower teeth. Patient has some difficulty chewing for this reason. Patient denies any diffiuclty swallowing in throat.) Respiratory: reports: No Symptoms reported Cardiac: reports: No Symptoms Reported GI: reports: Diarrhea, Poor Appetite : reports: Other (Hesitancy.) Musculoskeletal: reports: Joint Pain, Joint Stiffness Integumentary: reports: No Symptoms Reported Neuro: reports: No Symptoms reported Endocrine: reports: No Symptoms Reported Hematology: reports: No Symptoms Reported Psychiatric: reports: No Sypmtoms Reported, Judgement Intact, Mood/Affect Appropiate, Orientated x3 Other Systems: Reviewed and Negative Patient History - Patient Medical History Hx Anemia: No Hx Asthma: No Hx Chronic Obstructive Pulmonary Disease (COPD): No Hx Cancer: No Hx Cardiac Disorders: No Hx Congestive Heart Failure: No Hx Hypertension: No Hx Hypercholesterolemia: No Hx Pacemaker: No HX Cerebrovascular Accident: No Hx Seizures: No Hx Dementia: No Hx Diabetes: No Hx Gastrointestinal Disorders: No Hx Liver Disease: No Hx Genitourinary Disorders: Yes (BPH.) Hx Sexually Transmitted Disorders: No Hx Renal Disease (ESRD): No Hx Thyroid Disease: Yes (Uncertain about type of Disorder; No treatment yet.) Hx Human Immunodeficiency Virus (HIV): No (2015 NEGATIVE) Hx Hepatitis C: No (NEVER TESTED.) Hx Depression: No Hx Suicide Attempt: No (PATIENT DENIES CURRENT SI / HI.) Hx Bipolar Disorder: No Hx Schizophrenia: No Other Medical History: DENIES. - Patient Surgical History Past Surgical History: No Hx Neurologic Surgery: No Hx Cataract Extraction: No Hx Cardiac Surgery: No Hx Lung Surgery: No Hx Breast Surgery: No Hx Breast Biopsy: No Hx Abdominal Surgery: No Hx Appendectomy: No Hx Cholecystectomy: No Hx Genitourinary Surgery: No Hx Section: No Hx Orthopedic Surgery: No Other Surgical History: Removal of abscess from back, 2007. Anesthesia Reaction: No - PPD History Previous Implant?: Yes Documented Results: Negative w/proof Implanted On Prior [facility] Admission?: Yes Date: 04/28/17 Results: 0 mm PPD to be Administered?: No - Reproductive History Patient is a Female of Child Bearing Age (11 -55 yrs old): No (PATIENT IS MALE.) - Smoking Cessation Smoking history: Current every day smoker Have you smoked in the past 12 months: Yes Aproximately how many cigarettes per day: 2 Cigars Per Day: 0 Hx Chewing Tobacco Use: No Initiated information on smoking cessation: Yes 'Breaking Loose' booklet given: 05/02/17 (GIVEN TO PATIENT.) - Substance & Tx. History Hx Alcohol Use: Yes Hx Substance Use: Yes Substance Use Type: Alcohol, Cocaine Hx Substance Use Treatment: Yes (Previous Detox / Rehab admissions at [facility]. Last (Detox): 04/2017.) - Substances Abused Crack Route: Smoking Frequency: Daily Amount used: $ 100 Age of first use: 65 Date of Last Use: 05/02/17 Alcohol Route: Oral Frequency: 1-2 times per week Amount used: 2 - 40 oz. beers. Age of first use: 31 Date of Last Use: 05/02/17 Family Disease History - Family Disease History Family Disease History: Diabetes: Mother (), Brother, Other: Father ( ) Admission Physical Exam BHS - Vital Signs Vital Signs: Vital Signs - 24 hr 05/02/17 11:47 Temperature 96.4 F L Pulse Rate 96 H Respiratory 18 Rate Blood Pressure 153/81 - Physical General Appearance: Yes: No Apparent Distress, Nourished, Appropriately Dressed , Anxious HEENTM: Yes: Hearing grossly Normal, Normocephalic, Normal Voice, YURI, Pharynx Normal Respiratory: Yes: Chest Non-Tender, Lungs Clear, No Respiratory Distress, No Accessory Muscle Use Neck: Yes: No masses,lesions,Nodules, Supple, Trachea in good position Breast: Yes: Breast Exam Deferred Cardiology: Yes: Regular Rhythm, Regular Rate, S1, S2 Abdominal: Yes: Normal Bowel Sounds, Non Tender, Flat, Soft Genitourinary: Yes: Hesitency Back: Yes: Normal Inspection Musculoskeletal: Yes: Gait Steady, Joint Stiffness (Bilateral Knees.) Extremities: Yes: Normal Capillary Refill Neurological: Yes: Fully Oriented, Alert, Normal Mood/Affect, Normal Response Integumentary: Yes: Normal Color, Dry, Warm Lymphatic: Yes: Within Normal Limits - Diagnostic (1) Alcohol dependence, uncomplicated Current Visit: Yes Status: Chronic (2) Nicotine dependence Current Visit: Yes Status: Chronic Qualifiers: Nicotine product type: cigarettes Substance use status: uncomplicated Qualified Code(s): F17.210 - Nicotine dependence, cigarettes, uncomplicated (3) Thyroid disease Current Visit: Yes Status: Suspected Comment: Uncertain About specific type. (4) Cocaine dependence, uncomplicated Current Visit: Yes Status: Chronic (5) BPH (benign prostatic hyperplasia) Current Visit: Yes Status: Chronic Cleared for Admission [facility] - Detox or Rehab Claeared for Rehab Admission: Yes [facility] Breath Alcohol Content Breath Alcohol Content: 0 Urine Drug Screen - Results Drug Screen Negative: No Urine Drug Screen Results: REANNA-Cocaine, BZO-Benzodiazepines Inpatient Rehab Admission - Initial Determination Are CD services needed?: Yes Free of communicable disease: Yes Not in need of hospitalization: Yes - Rehab Admission Criteria Previous failed treatment: Yes Comorbidities: Yes Patient is meeting Inpatient Rehab admission criteria:: Yes
[2017-05-02] MEDS ORDERED: MAGNESIUM HYDROX 2400MG/30ML ORAL SUSPENSION 30 ML CUP PO PRN (13:16)
[2017-05-02] MEDS ORDERED: MENTHOL/PHENOL 1 EACH UD MM PRN (13:16)
[2017-05-02] MEDS ORDERED: P-EPHED 60MG/TRIPROLIDI 2.5MG TABLET PO PRN (13:16)
[2017-05-02] MEDS ORDERED: IBUPROFEN 400 MG TABLET (FP) PO PRN ×2 (13:16→13:22)
[2017-05-02] MEDS ORDERED: guaiFENesin/D-METHORPHAN HB 10 ML UNIT-DOSE CUPS PO PRN (13:16)
[2017-05-02] MEDS ORDERED: MAGNESIUM CITRATE 300 ML BOTTLE PO PRN (13:16)
[2017-05-02] MEDS ORDERED: LOPERAMIDE HCL 2 MG CAPSULE PO PRN (13:16)
[2017-05-02] MEDS: FINASTERIDE 5 MG TABLET (FP) PO SCH (19:17)
[2017-05-02] MEDS: THIAMINE HCL 100 MG TABLET (FP) PO SCH ×2 (21:37→21:40)
--- NOTE | 2017-05-02 23:58 | PN ---
S Progress Note Note: Patient with difficulty sleeping, and pacing in the unit. Patient in no apparent distress. Vital Signs Temperature 96.4 F L 05/02/17 11:47 Pulse Rate 100 H 05/02/17 21:44 Respiratory Rate 18 05/02/17 11:47 Blood Pressure 135/84 05/02/17 21:44 O2 Sat by Pulse Oximetry (%) Plan: Vistaril 50mg PRN Continue to monitor
[2017-05-02] MEDS: hydrOXYzine PAMOATE 50 MG CAPSULE (FP) PO PRN (23:59)
[2017-05-03] MEDS: TAMSULOSIN HCL 0.4 MG CAP.ER.24H (FP) PO SCH (08:10)
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
[2017-05-03] MEDS: FINASTERIDE 5 MG TABLET (FP) PO SCH (11:00)
[2017-05-03] MEDS: PRENATAL VITAMINS W/ FOLIC ACID TABLET (FP) PO SCH (11:00)
--- NOTE | 2017-05-03 13:00 | EKG ---
Test Reason : Blood Pressure : / mmHG Vent. Rate : 082 BPM Atrial Rate : 082 BPM P-R Int : 150 ms QRS Dur : 094 ms QT Int : 390 ms P-R-T Axes : 064 026 068 degrees QTc Int : 455 ms NORMAL SINUS RHYTHM MODERATE VOLTAGE CRITERIA FOR LVH, MAY BE NORMAL VARIANT NONSPECIFIC T WAVE ABNORMALITY ABNORMAL ECG WHEN COMPARED WITH ECG OF 26-APR-2017 18:13, NONSPECIFIC T WAVE ABNORMALITY NOW EVIDENT IN LATERAL LEADS Confirmed by KELSEY EPSTEIN MD ([id number]) on 05/03/2017 1:00:43 PM Referred By: Confirmed By:KELSEY EPSTEIN MD
[2017-05-03] MEDS: IBUPROFEN 600 MG TABLET (FP) PO PRN (18:00)
[2017-05-03] MEDS: SUVOREXANT 5 MG TABLET PO PRN (21:16)
[2017-05-03] MEDS: THIAMINE HCL 100 MG TABLET (FP) PO SCH (21:16)
[2017-05-04] MEDS: MAG HYDROX/AL HYDROX/SIMETH 30 ML UNIT-DOSE CUP PO PRN (04:39)
[2017-05-04] MEDS: TAMSULOSIN HCL 0.4 MG CAP.ER.24H (FP) PO SCH (10:27)
[2017-05-04] MEDS: PRENATAL VITAMINS W/ FOLIC ACID TABLET (FP) PO SCH (10:27)
[2017-05-04] MEDS: FINASTERIDE 5 MG TABLET (FP) PO SCH (10:28)
[2017-05-04] MEDS: IBUPROFEN 600 MG TABLET (FP) PO PRN (17:30)
[2017-05-04] MEDS: hydrOXYzine PAMOATE 50 MG CAPSULE (FP) PO PRN (17:31)
[2017-05-04] MEDS: THIAMINE HCL 100 MG TABLET (FP) PO SCH (21:49)
[2017-05-04] MEDS: SUVOREXANT 5 MG TABLET PO PRN (21:50)
[2017-05-05] MEDS: PRENATAL VITAMINS W/ FOLIC ACID TABLET (FP) PO SCH (09:51)
[2017-05-05] MEDS: FINASTERIDE 5 MG TABLET (FP) PO SCH (09:51)
[2017-05-05] MEDS: TAMSULOSIN HCL 0.4 MG CAP.ER.24H (FP) PO SCH (09:51)
[2017-05-05] MEDS: IBUPROFEN 600 MG TABLET (FP) PO PRN (09:53)
[2017-05-05] MEDS: MAG HYDROX/AL HYDROX/SIMETH 30 ML UNIT-DOSE CUP PO PRN (20:12)
[2017-05-05] MEDS: SUVOREXANT 5 MG TABLET PO PRN (21:19)
[2017-05-05] MEDS: THIAMINE HCL 100 MG TABLET (FP) PO SCH (21:19)
[2017-05-06] MEDS: hydrOXYzine PAMOATE 50 MG CAPSULE (FP) PO PRN ×2 (00:44→21:40)
[2017-05-06] MEDS: TAMSULOSIN HCL 0.4 MG CAP.ER.24H (FP) PO SCH (09:00)
[2017-05-06] MEDS: PRENATAL VITAMINS W/ FOLIC ACID TABLET (FP) PO SCH (10:28)
[2017-05-06] MEDS: FINASTERIDE 5 MG TABLET (FP) PO SCH (10:29)
[2017-05-06] MEDS: IBUPROFEN 600 MG TABLET (FP) PO PRN ×2 (10:30→18:35)
--- NOTE | 2017-05-06 20:43 | PN ---
S Progress Note Note: Psychiatry Attending's note : Called for renewal of medication. Belsomra 5 mg po hs prn. Re-ordered as per treatment plan.
[2017-05-06] MEDS: THIAMINE HCL 100 MG TABLET (FP) PO SCH (21:38)
[2017-05-06] MEDS: SUVOREXANT 5 MG TABLET PO PRN (21:39)
[2017-05-07] MEDS: hydrOXYzine PAMOATE 50 MG CAPSULE (FP) PO PRN (01:33)
[2017-05-07] MEDS: IBUPROFEN 600 MG TABLET (FP) PO PRN ×2 (07:13→17:50)
[2017-05-07] MEDS: TAMSULOSIN HCL 0.4 MG CAP.ER.24H (FP) PO SCH (10:35)
[2017-05-07] MEDS: FINASTERIDE 5 MG TABLET (FP) PO SCH (10:35)
[2017-05-07] MEDS: PRENATAL VITAMINS W/ FOLIC ACID TABLET (FP) PO SCH (10:35)
[2017-05-07] MEDS: ACETAMINOPHEN 325 MG TABLET (FP) PO PRN (10:36)
[2017-05-07] MEDS: THIAMINE HCL 100 MG TABLET (FP) PO SCH (21:14)
[2017-05-07] MEDS: SUVOREXANT 5 MG TABLET PO PRN (21:14)
[2017-05-08] MEDS: hydrOXYzine PAMOATE 50 MG CAPSULE (FP) PO PRN ×2 (01:33→21:37)
[2017-05-08] MEDS: IBUPROFEN 600 MG TABLET (FP) PO PRN ×2 (01:34→17:41)
[2017-05-08] MEDS: TAMSULOSIN HCL 0.4 MG CAP.ER.24H (FP) PO SCH (10:34)
[2017-05-08] MEDS: PRENATAL VITAMINS W/ FOLIC ACID TABLET (FP) PO SCH (10:34)
[2017-05-08] MEDS: FINASTERIDE 5 MG TABLET (FP) PO SCH (10:34)
[2017-05-08] MEDS: THIAMINE HCL 100 MG TABLET (FP) PO SCH (21:35)
[2017-05-08] MEDS: SUVOREXANT 5 MG TABLET PO PRN (21:36)
[2017-05-09] MEDS: IBUPROFEN 600 MG TABLET (FP) PO PRN ×3 (06:26→21:22)
[2017-05-09] MEDS: FINASTERIDE 5 MG TABLET (FP) PO SCH (09:41)
[2017-05-09] MEDS: TAMSULOSIN HCL 0.4 MG CAP.ER.24H (FP) PO SCH (09:41)
[2017-05-09] MEDS: PRENATAL VITAMINS W/ FOLIC ACID TABLET (FP) PO SCH (09:41)
[2017-05-09] MEDS: THIAMINE HCL 100 MG TABLET (FP) PO SCH (21:22)
[2017-05-09] MEDS: hydrOXYzine PAMOATE 50 MG CAPSULE (FP) PO PRN (21:22)
[2017-05-10] MEDS: TAMSULOSIN HCL 0.4 MG CAP.ER.24H (FP) PO SCH (09:00)
[2017-05-10] MEDS: PRENATAL VITAMINS W/ FOLIC ACID TABLET (FP) PO SCH (10:21)
[2017-05-10] MEDS: FINASTERIDE 5 MG TABLET (FP) PO SCH (10:21)
[2017-05-10] MEDS: IBUPROFEN 600 MG TABLET (FP) PO PRN ×2 (14:15→21:29)
[2017-05-10] MEDS: hydrOXYzine PAMOATE 50 MG CAPSULE (FP) PO PRN (21:28)
[2017-05-10] MEDS: THIAMINE HCL 100 MG TABLET (FP) PO SCH (21:28)
[2017-05-11] MEDS: TAMSULOSIN HCL 0.4 MG CAP.ER.24H (FP) PO SCH (09:00)
[2017-05-11] MEDS: PRENATAL VITAMINS W/ FOLIC ACID TABLET (FP) PO SCH (10:10)
[2017-05-11] MEDS: FINASTERIDE 5 MG TABLET (FP) PO SCH (10:11)
[2017-05-11] MEDS: IBUPROFEN 600 MG TABLET (FP) PO PRN (10:12)
[2017-05-11] MEDS: THIAMINE HCL 100 MG TABLET (FP) PO SCH (21:41)
[2017-05-11] MEDS: hydrOXYzine PAMOATE 50 MG CAPSULE (FP) PO PRN (21:42)
[2017-05-12] MEDS: IBUPROFEN 600 MG TABLET (FP) PO PRN ×2 (01:12→21:24)
[2017-05-12] MEDS: hydrOXYzine PAMOATE 50 MG CAPSULE (FP) PO PRN ×2 (02:40→21:24)
[2017-05-12] MEDS: TAMSULOSIN HCL 0.4 MG CAP.ER.24H (FP) PO SCH (09:42)
[2017-05-12] MEDS: PRENATAL VITAMINS W/ FOLIC ACID TABLET (FP) PO SCH (09:42)
[2017-05-12] MEDS: FINASTERIDE 5 MG TABLET (FP) PO SCH (09:42)
[2017-05-12] MEDS: ACETAMINOPHEN 325 MG TABLET (FP) PO PRN (09:43)
[2017-05-12] MEDS: THIAMINE HCL 100 MG TABLET (FP) PO SCH (21:23)
[2017-05-13] MEDS: TAMSULOSIN HCL 0.4 MG CAP.ER.24H (FP) PO SCH (10:08)
[2017-05-13] MEDS: PRENATAL VITAMINS W/ FOLIC ACID TABLET (FP) PO SCH (10:08)
[2017-05-13] MEDS: FINASTERIDE 5 MG TABLET (FP) PO SCH (10:08)
[2017-05-13] MEDS: IBUPROFEN 600 MG TABLET (FP) PO PRN ×2 (10:09→21:32)
[2017-05-13] MEDS: THIAMINE HCL 100 MG TABLET (FP) PO SCH (21:30)
[2017-05-13] MEDS: hydrOXYzine PAMOATE 50 MG CAPSULE (FP) PO PRN (21:32)
[2017-05-14] MEDS: IBUPROFEN 600 MG TABLET (FP) PO PRN ×2 (09:45→21:31)
[2017-05-14] MEDS: PRENATAL VITAMINS W/ FOLIC ACID TABLET (FP) PO SCH (09:45)
[2017-05-14] MEDS: FINASTERIDE 5 MG TABLET (FP) PO SCH (09:45)
[2017-05-14] MEDS: TAMSULOSIN HCL 0.4 MG CAP.ER.24H (FP) PO SCH (09:46)
[2017-05-14] MEDS: THIAMINE HCL 100 MG TABLET (FP) PO SCH (21:30)
[2017-05-14] MEDS: hydrOXYzine PAMOATE 50 MG CAPSULE (FP) PO PRN (21:31)
[2017-05-15 07:07] VITALS: BP 121/87; PULSE 67; TEMP 98.4
--- NOTE | 2017-05-15 08:50 | PN ---
Psychiatric Progress Note Vital Signs: Vital Signs Period Temp Pulse Resp BP Sys/[place] Pulse Ox Last 24 Hr 98.4 F 67 18-18 121/87 Date of Session: 05/15/17 Chief Complaint:: Discharge discharge vist HPI: Addressed Cociane dependence,Alcohol dependence comorbid with Substance induced mood disorder. ROS: BPH. Current Medications: Active Medications Generic Name Dose Route Start Last Admin Trade Name Freq PRN Reason Stop Dose Admin Acetaminophen 650 mg 05/02/17 13:16 05/12/17 09:43 Tylenol - PO 650 mg Q4H PRN Administration FEVER Al Hydroxide/Mg Hydroxide 30 ml 05/02/17 13:16 05/05/17 20:12 Mylanta Oral Suspension - PO 30 ml Q6H PRN Administration DYSPEPSIA Eucalyptus/Menthol/Phenol/Sorbitol 1 each 05/02/17 13:16 Cepastat Lozenge - MM Q4H PRN SORE THROAT Finasteride 5 mg 05/02/17 15:00 05/14/17 09:45 Proscar - PO 5 mg DAILY CASEY Administration Guaifenesin 10 ml 05/02/17 13:16 Robitussin Dm - PO Q6H PRN COUGH Hydroxyzine Pamoate 50 mg 05/02/17 23:55 05/14/17 21:31 Vistaril - PO 50 mg Q6H PRN Administration FOR ITCHING Ibuprofen 600 mg 05/03/17 17:56 05/14/17 21:31 Motrin - PO 600 mg Q8H PRN Administration Pain level 4-6 Loperamide HCl 4 mg 05/02/17 13:16 05/03/17 17:54 Imodium - PO 4 mg Q6H PRN Administration DIARRHEA Magnesium Citrate 300 ml 05/02/17 13:16 Citroma - PO Q48H PRN CONSTIPATION Magnesium Hydroxide 30 ml 05/02/17 13:16 Milk Of Magnesia - PO DAILY PRN CONSTIPATION Multivit/Folic Acid/Iron 1 tab 05/03/17 10:00 05/14/17 09:45 Vitamins (Sjr) - PO 1 tab DAILY CASEY Administration Pseudoephedrine/Triprolidine 1 combo 05/02/17 13:16 Actifed - PO TID PRN NASAL CONGESTION Tamsulosin HCl 0.4 mg 05/03/17 08:30 05/14/17 09:46 Flomax - PO 0.4 mg DAILY@0830 CASEY Administration Thiamine HCl 100 mg 05/02/17 22:00 05/14/17 21:30 Vitamin B1 - PO 100 mg HS CASEY Administration Current Side Effect: No Lab tests ordered: No Lab tests reviewed: Yes Provider note:: Patient completed this program today.He has met his treatment goals and will continue to address his issues on outpatient basis at [facility].patient idntifies areas of difficulties,coping skills,support system utilization has been discussed as well as other resourses to maintain recovery. Emotional support provided. patient is stable for discharge today. Total face to face time:: 30 Mental Status Exam - Mental Status Exam Alert and Oriented to: Time, Place, Person Cognitive Function: Grossly Intact Patient Appearance: Well Groomed Mood: Hopeful, Euthymic Affect: Mood Congruent Patient Behavior: Cooperative Speech Pattern: Clear Voice Loudness: Normal Thought Process: Goal Oriented Thought Disorder: Not Present Hallucinations: Denies Suicidal Ideation: Denies Homicidal Ideation: Denies Insight/Judgement: Fair Sleep: Fair Appetite: Fair Muscle strength/Tone: Normal Gait/Station: Normal Psychiatric Treatment Plan - Problem List (1) Alcohol dependence, uncomplicated Current Visit: Yes (2) BPH (benign prostatic hyperplasia) Current Visit: Yes (3) Cocaine dependence, uncomplicated Current Visit: Yes (4) Nicotine dependence Current Visit: Yes Qualifiers: Nicotine product type: cigarettes Substance use status: uncomplicated Qualified Code(s): F17.210 - Nicotine dependence, cigarettes, uncomplicated (5) Thyroid disease Current Visit: Yes Comment: Uncertain About specific type.
[2017-05-15] MEDS: TAMSULOSIN HCL 0.4 MG CAP.ER.24H (FP) PO SCH (09:00)
[2017-05-15] MEDS: FINASTERIDE 5 MG TABLET (FP) PO SCH (10:37)
[2017-05-15] MEDS: PRENATAL VITAMINS W/ FOLIC ACID TABLET (FP) PO SCH (10:37)
[2017-05-15] MEDS: IBUPROFEN 600 MG TABLET (FP) PO PRN (10:38)
== END 2017-05-15 11:30 | disposition home or self-care (01) | DRG 895 ==
LOC: YASAS 11:38 → Y5N 14:57
PROVIDERS: ADMIT Psychiatry & Neurology Psychiatry; ATTEND Psychiatry & Neurology Psychiatry
PROC: HZ42ZZZ Group Counseling for Substance Abuse Treatment, Cognitive-Behavioral (ICD-10-PCS; principal; 2017-05-02)
DX: F10.20 Alcohol dependence, uncomplicated (principal); F14.20 Cocaine dependence, uncomplicated; F17.210 Nicotine dependence, cigarettes, uncomplicated; F19.24 Other psychoactive substance dependence with psychoactive substance-induced mood disorder; G47.00 Insomnia, unspecified; N40.0 Benign prostatic hyperplasia without lower urinary tract symptoms; E07.9 Disorder of thyroid, unspecified
CPT/HCPCS: 36415; 93005; 93010